=== PATIENT | female | born 1960 | race Caucasian/White ===

== ENCOUNTER 2021-03-06 08:56 | Emergency (ER) | payer OTHER, SELFPAY ==
--- NOTE | 2021-03-06 | ECG_ITS ---
Test Reason : HEART PALP Blood Pressure : / mmHG Vent. Rate : 078 BPM Atrial Rate : 078 BPM P-R Int : 172 ms QRS Dur : 074 ms QT Int : 372 ms P-R-T Axes : 051 028 052 degrees QTc Int : 424 ms Normal sinus rhythm Normal ECG When compared with ECG of 10-JUL-2015 15:03, Premature atrial complexes are no longer Present Referred By: Generic ED Physician Electronically Signed By:Benja Carter
--- NOTE | ~2021-03-06 | CT_ITS ---
EXAMINATION: CT ANGIOGRAM NECK WITH CONTRAST CT ANGIOGRAM BRAIN WITH CONTRAST CLINICAL INFORMATION: Dizziness. Dysarthria. COMPARISON: Brain MRI July 10, 2005. TECHNIQUE: Test bolus sequences followed by intravenous administration 100 mL of Omnipaque 350. Helical imaging was performed in the axial plane from the thoracic inlet to the skull vertex. Delayed postcontrast imaging of the head was also performed. The data was processed at the cytotechnologist workstation for generation of MIP sequences. Angled MIPs and volume rendered reformatted images were also generated at an offline 3D workstation. Stenoses are assessed in accordance with NASCET criteria unless otherwise indicated. This CT examination was performed using dose optimization techniques as appropriate, variously including the following: *Automated exposure control *Adjustment of mA and/or kV according to patient size (this includes techniques or standardized protocols for targeted exams where dose is matched to indication/reason for exam; i.e. extremities or head) *Use of iterative reconstruction technique DLP: 2501 mGy-cm FINDINGS: Head CT: There is no intracranial hemorrhage, extra-axial collection, mass effect, or CT evidence of territorial infarction. The ventricles are normal in size and configuration without evidence of hydrocephalus. The extracranial structures are unremarkable. No abnormal enhancement is seen. The dural venous sinuses demonstrate normal opacification. Neck CTA: The aortic arch and great vessel origins are patent. The common and internal carotid arteries are patent. No stenosis is seen at the bifurcations. Both vertebral arteries are patent with the right side being mildly dominant. Head CTA: The intradural vertebral arteries are patent. The left vertebral artery terminates as a PICA. The right vertebral artery supplies the basilar artery. The basilar artery is patent. There is disposition of the bilateral posterior cerebral arteries. Both chainstitch binder are patent. The bilateral ICAs are patent. The anterior cerebral arteries are patent. Both MCAs are patent with symmetric collaterals. No discrete aneurysm is seen. Non-vascular findings: The cervical soft tissues are within normal limits. There is no consolidation within the upper lungs. Mild degenerative changes are seen within the spine. There is no significant narrowing of the spinal canal. CT/CT angio head neck stroke IMPRESSION: CT head: No intracranial hemorrhage or large acute infarction. CTA neck: No hemodynamically significant stenosis in the major arteries of the neck. CTA head: No large vessel occlusion or significant stenosis within the intracranial circulation. This critical result was discussed with Deb Lew on 03/06/2021 11:00 AM, and it was ascertained that the content and urgency of the report was understood at the time of direct communication.
[2021-03-06 09:09] VITALS: BP 127/74; PULSE 79; RESP 16; TEMP 35.8; O2SAT 96; BMI 20.7
--- NOTE | 2021-03-06 09:56 | ED_ITS ---
HPI - Syncope General Chief Complaint: Dizziness Stated Complaint: extreme dizziness Time Seen by Provider: 03/06/21 09:44 Source: patient Mode of arrival: ambulatory Limitations: no limitations History of Present Illness HPI narrative: 60 y/o female with history of osteoporosis and headaches presents to the ER with an episode of dizziness and feeling out of her body while driving to work earlier this morning. She reports waking up feeling at her baseline today. She went for an hour hike and drank plenty of water. On her way to work at 8am she was on the phone with her friend when she suddenly felt a ahmadi in her head and felt very lightheaded and dizzy. She pulled over and ate a protein bar. She felt well enough to continue driving to work but did not feel back to her baseline. When she got to work 30 minutes later she still felt unwell so she was brought to the ER for further evaluation. In the waiting room she had another headrush. She denies any focal weakness, numbness, tingling, facial droop, difficulty speaking. She reports a history of severe headaches in the past; was seen here a few years ago for this associated with difficulty speaking - had stroke protocol done, got migraine cocktail with severe adverse reaction per her report. complaint: felt faint and almost passed out Onset (ago): hour(s) (2) Duration of episode: 40 Prodromal symptoms: vision changes, lightheaded and heart racing Witnessed: No Context: at rest Injuries sustained associated with event: none Current symptoms: lightheaded Treatments prior to arrival: none Related Data Home Medications Medication Instructions Recorded Confirmed fluorouracil 5 % topical cream appl TOPICAL BID 10/18/20 ibuprofen 600 mg tablet 600 mg PO TID PRN 10/18/20 olopatadine 0.2 % eye drops 1 drp OPHTHALMIC (EYE) BID 10/18/20 olopatadine 0.7 % eye drops 1 drp OPHTHALMIC (EYE) DAILY 10/18/20 valacyclovir 1 gram tablet 1,000 mg PO BID 10/18/20 Previous Rx's Medication Instructions Recorded alendronate 70 mg tablet 70 mg PO QWEEK #12 tab 01/26/21 Allergies Allergy/AdvReac Type Severity Reaction Status Date / Time codeine [CODEINE] Allergy Severe MAKES ME Verified 10/18/20 16:00 CRAZY diphenhydramine Allergy Severe Palpitation Verified 10/18/20 16:00 [From Benadryl] s,Anxiety Sulfa (Sulfonamide Allergy Severe UNKNWON, Verified 10/18/20 16:00 Antibiotics) hives [SULFA (SULFONAMIDE ANTIBIOTICS)] sulfamethoxazole Allergy Unknown Unknown Verified 10/18/20 16:00 [From Septra] trimethoprim [From Septra] Allergy Unknown Unknown Verified 10/18/20 16:00 Review of Systems Review of Systems: Constitutional: No Fever, No Chills ENT/Mouth: No sore throat, No Rhinorrhea, No Swallowing Difficulty Eyes: No Eye Pain, No Swelling, No Redness Cardiovascular: No Chest Pain, No SOB, No Orthopnea, No Edema Respiratory: No Cough, No Sputum, No Wheezing, No dyspnea Gastrointestinal: No Nausea, No Vomiting, No Diarrhea, No abdominal Pain Genitourinary: No Dysuria, No Urinary Frequency, No Hematuria Musculoskeletal: No joint pain, No Myalgias Skin: No Skin Lesions, No rash Neuro: No Weakness, No Numbness, + Dizziness, No Headache Psych: + Anxiety/Panic, No Depression Heme/Lymph: No Bruising, No Lymphadenopathy Endocrine: No Polyuria, No Polydipsia PMFSH Past Medical History Attestation statement: The following information was validated with the patient. Surgical History History of appendectomy History of section History of nasal surgery Family History Family History Father Lung cancer Smoker Mother Hypotension Blood disorder Sister Breast cancer Son Autism Social History Social History Alcohol intake: never Patient Tobacco Use Status: Never used Tobacco Use of substances other than those prescribed or required for medical reasons: No Advance Directives: Yes Advance Directives Information Provided: Yes Advance Directives on File: No Physical Exam Vital Signs: Vital Signs: Last Vital Signs Temp 96.4 F L 03/06/21 09:09 Pulse 77 03/06/21 12:23 Resp 16 03/06/21 12:08 BP 115/61 03/06/21 12:23 Pulse Ox 97 03/06/21 12:08 Body Mass Index 20.7 Appearance: Alert. Oriented X3. No acute distress. Eyes: Pupils equal, round and reactive to light. EOMI, no nystagmus ENT: Pharynx normal. Neck: Normal inspection. Neck supple. CVS: Normal heart rate and rhythm. Pulses normal. Respiratory: No respiratory distress. Breath sounds normal. Abdomen: Soft and nontender. +BS x4 Skin: Skin warm and dry. Normal skin color. Normal skin turgor. No rashes. Extremities: No lower extremity edema. Neuro: Oriented X 3. No motor deficit. No sensory deficit. Normal speech. Normal finger to nose and heel to bello bilaterally. NIH Stroke Scale Internal: Initial- Upon Arrival Level of Consciousness: Alert Level of Consciousness Questions: Answers both questions correctly Level of Consciousness Commands: Performs both tasks correctly Best Gaze: Normal Visual: No visual loss Facial Palsy: Normal Motor Arm (Right): No drift Motor Arm (Left): No drift Motor Leg (Right): No drift Motor Leg (Left): No drift Limb Ataxia: Absent Sensory: Normal Best Language: No aphasia Dysarthia: Normal Extinction and Inattention: No abnormality Score: 0 Course Course Course Narrative: 60 y/o female presenting with acute onset of dizziness and feeling unwell that started at 8am this morning. Slightly better after eating. Question hypoglycemia episode although she reports not feeling back to her baseline as of yet. Her neuro exam is completely benign and nonfocal. NIH 0. Not a tPA candidate at this time given her symptoms are non-disabling Will get metabolic workup, EKG and monitor closely. Reevaluation(s) Reevaluation #1: 10:10 - patient's friend at the bedside witnessed an acute mental status change with confusion that was very brief - did not remember her birthday and could not recite the alphabet. Now back to baseline. Dr. Colon aware - recommending STAT stroke protocol with CTA head/neck and giving dose of IV toradol and IV droperidol for possible atypical migraine. She is anxious and suspect some anxiety is playing a role. Effie COLIN affiliate marketing coordinator made aware. Reevaluation #2: Case was reviewed by Dr. Victoria - recommends outpatient follow up with Neurology and her PCP. She needs an outpatient EEG - she reportedly has a remote seizure history in her 20s and took herself off of depakote when she got with no return of seizures. Doubt acute seizure at this time. Ambulated to the bathroom with a steady gait. Remains nonfocal. Reevaluation #3: Orthostatic VS are normal. Feels improved after meds. No recurrence of confusion. She would like to go home. We discussed the possibility of admission for observation and she feels so much better she would like to go home. She agrees to f.u with Neuro and her PCP. Case and dispo d/w Dr. Colon who agrees with plan. Consultations Consultation #1: Neurology MDM - Syncope Differential Diagnosis Differential diagnosis: Likely syncope due to orthostatic hypotension, vasovagal syncope, complete atrioventricular block, subarachnoid hemorrhage and dehydratio n Medical Records Attestation: I reviewed the patient's medical records. Lab Data Attestation: I reviewed the patient's lab results. Result diagrams: 03/06/21 10:24 03/06/21 10:24 Labs: Lab Results 03/06/21 03/06/21 03/06/21 Range/Units 10:24 10:24 10:24 WBC 4.4 L (4.8-10.8) X10*3/uL RBC 4.19 L (4.20-5.50) X10*6/uL Hgb 12.7 (12.0-16.0) g/dl Hct 37.0 (37-47) % MCV 88.3 (80-98) fL MCH 30.3 (27.0-33.0) pg MCHC 34.3 (31.0-35.0) g/dl RDW 11.8 (11.0-16.0) % Plt Count 221 (160-400) X10*3/uL MPV 9.3 L (9.4-12.3) fL Immature Gran % (Auto) 0.2 (0.0-0.4) % Neut % (Auto) 50.3 (45-73) % Lymph % (Auto) 34.9 (20-40) % Creek % (Auto) 10.6 (2-11) % Eos % (Auto) 2.9 (0-4) % Baso % (Auto) 1.1 (0-2) % Lymph # (Auto) 1.6 (1.2-4.9) X10*3/uL [place] # (Auto) 0.5 (0.1-1.2) X10*3/uL Eos # (Auto) 0.1 (0.0-0.4) X10*3/uL Baso # (Auto) 0.1 (0.0-0.2) X10*3/uL Abs Immat Gran (auto) 0.01 (0.00-0.03) X10*3/uL Absolute Neuts (auto) 2.2 (2.0-8.3) X10*3/uL Absolute Nucleated RBC 0.000 (0.0-0.012) X10*3/uL Nucleated RBC % (auto) 0.0 (0.0-0.2) /100WBC PT (9.9-13.0) SEC INR (0.9-1.1) APTT (24.1-38.0) SEC Sodium 141 (135-145) mmol/L Potassium 3.9 (3.3-5.1) mmol/L Chloride 106 (96-108) mmol/L Carbon Dioxide 24 (22-29) mmol/L Anion Gap 15 (12-20) BUN 15 (9-16) mg/dL Creatinine 0.72 (0.5-1.4) mg/dL Estim Creat Clear Calc 85.3 Estimated GFR > 60 Random Glucose 91 (60-115) mg/dL Calcium 10.0 (8.4-10.2) mg/dL Magnesium 1.8 (1.6-2.6) mg/dL Total Bilirubin 0.6 (0.0-1.0) mg/dL Direct Bilirubin 0.2 (0.0-0.5) mg/dL AST 27 (5-31) U/L ALT 37 H (0-31) U/L Alkaline Phosphatase 45 (39-117) U/L Troponin I High Sens < 3.5 (<3.5-17.0) ng/L B-Natriuretic Peptide 88 (<100) pg/mL Total Protein 7.2 (6.5-8.0) g/dL Albumin 4.5 (3.5-5.0) g/dL Urine Color Urine Appearance Urine pH (5.0-8.0) Ur Specific [place] (1.005-1.025) Urine Protein (NEG-TRACE) MG/DL Urine Glucose (UA) (NEG) MG/DL Urine Ketones (NEG) MG/DL Urine Blood (NEG) Urine Nitrite (NEG) Ur Leukocyte Esterase (NEG) Urine Opiates Screen (Not Detect) Ur Barbiturates Screen (Not Detect) Ur Phencyclidine Scrn (Not Detect) Ur Amphetamines Screen (Not Detect) U Benzodiazepines Scrn (Not Detect) Urine Cocaine Screen (Not Detect) U Marijuana (THC) Screen (Not Detect) 03/06/21 03/06/21 03/06/21 Range/Units 10:24 10:24 11:28 WBC (4.8-10.8) X10*3/uL RBC (4.20-5.50) X10*6/uL Hgb (12.0-16.0) g/dl Hct (37-47) % MCV (80-98) fL MCH (27.0-33.0) pg MCHC (31.0-35.0) g/dl RDW (11.0-16.0) % Plt Count (160-400) X10*3/uL MPV (9.4-12.3) fL Immature Gran % (Auto) (0.0-0.4) % Neut % (Auto) (45-73) % Lymph % (Auto) (20-40) % Creek % (Auto) (2-11) % Eos % (Auto) (0-4) % Baso % (Auto) (0-2) % Lymph # (Auto) (1.2-4.9) X10*3/uL [place] # (Auto) (0.1-1.2) X10*3/uL Eos # (Auto) (0.0-0.4) X10*3/uL Baso # (Auto) (0.0-0.2) X10*3/uL Abs Immat Gran (auto) (0.00-0.03) X10*3/uL Absolute Neuts (auto) (2.0-8.3) X10*3/uL Absolute Nucleated RBC (0.0-0.012) X10*3/uL Nucleated RBC % (auto) (0.0-0.2) /100WBC PT 12.0 (9.9-13.0) SEC INR 1.1 (0.9-1.1) APTT 34.6 (24.1-38.0) SEC Sodium (135-145) mmol/L Potassium (3.3-5.1) mmol/L Chloride (96-108) mmol/L Carbon Dioxide (22-29) mmol/L Anion Gap (12-20) BUN (9-16) mg/dL Creatinine (0.5-1.4) mg/dL Estim Creat Clear Calc Estimated GFR Random Glucose (60-115) mg/dL Calcium (8.4-10.2) mg/dL Magnesium (1.6-2.6) mg/dL Total Bilirubin (0.0-1.0) mg/dL Direct Bilirubin (0.0-0.5) mg/dL AST (5-31) U/L ALT (0-31) U/L Alkaline Phosphatase (39-117) U/L Troponin I High Sens (<3.5-17.0) ng/L B-Natriuretic Peptide (<100) pg/mL Total Protein (6.5-8.0) g/dL Albumin (3.5-5.0) g/dL Urine Color YELLOW Urine Appearance CLEAR Urine pH 7.0 (5.0-8.0) Ur Specific [place] 1.010 (1.005-1.025) Urine Protein NEG (NEG-TRACE) MG/DL Urine Glucose (UA) NEG (NEG) MG/DL Urine Ketones NEG (NEG) MG/DL Urine Blood NEG (NEG) Urine Nitrite NEG (NEG) Ur Leukocyte Esterase NEG (NEG) Urine Opiates Screen Not Detected (Not Detect) Ur Barbiturates Screen Not Detected (Not Detect) Ur Phencyclidine Scrn Not Detected (Not Detect) Ur Amphetamines Screen Not Detected (Not Detect) U Benzodiazepines Scrn Not Detected (Not Detect) Urine Cocaine Screen Not Detected (Not Detect) U Marijuana (THC) Screen Not Detected (Not Detect) ECG Data Attestation: I personally reviewed and interpreted this ECG as follows: ECG interpretation date: 03/06/21 ECG interpretation time: 10:20 Interpretation: normal sinus rhythm, HR 78 bpm, normal LA interval, normal QTc, no ST segment elevations or depressions. Critical Care Time Critical Care Time Critical Care Time: Yes Total Critical Care Time: 48 Attestation: I have personally provided critical care time exclusive of time spent on separately billable procedures. Time includes review of lab data, radiology results, discussion with consultants, and monitoring for potential decompensation. Intervention performed as documented. Discharge Plan Discharge Clinical Impression: Pre-syncope Patient Disposition: Home, Self-Care Instructions: Near Syncope (ED) Additional Instructions: Your lab workup today was normal. Your CT scan was normal. Cause of your symptoms are not completeyl clear - recommend close outpatient follow up with your doctor as well as Neurology. Recommend outpatient EEG to assess for possible seizure activity. Rest. No strenuous activity. Do not drive today. Stay hydrated and drink plenty of fluids. If you develop new or worsening symptoms call 911 or come back to the ER for further evaluation. Prescriptions: No Action alendronate 70 mg tablet 70 mg PO QWEEK Qty: 12 RF: 0 valacyclovir 1 gram tablet 1,000 mg PO BID RF: 0 ibuprofen 600 mg tablet 600 mg PO TID PRNRF: 0 [place] 0.7 % drops 1 drp ophthalmic (eye) DAILY RF: 0 olopatadine 0.2 % drops 1 drp ophthalmic (eye) BID RF: 0 fluorouracil 5 % cream topical BID RF: 0 Referrals: Marielle Teresa MD [Physician] - 2 days (presyncope w/ confusion, remote hx seizures) Mayra Prather NP [Primary Care Provider] - 2 days Stand Alone Forms: Work/School Release
--- NOTE | 2021-03-06 10:06 | PC.NURSE ---
friend at bedside reports pt very confused with unclear speech. Evaluated pt at bedside, asked her to recite alphabet, pt had letters scrambled and stopped mid alphabet, could not remember the order of letters but then finished, leaving off the last 6 letters.Physical neuro exam: pupils equal and reactive. Face symmetrical. Tongue midline. [employer] equal and strong. She has no limb drift or ataxia. MD aware of mental status change. awaiting orders.
[2021-03-06 10:32] LABS: MANUAL DIFF FLAG NO
[2021-03-06 10:33] LABS: Basophils Absolute Auto 0.1 X10*3/uL (0.0-0.2); Basophils Percent Auto 1.1 % (0-2); Eosinophils Absolute Auto 0.1 X10*3/uL (0.0-0.4); Eosinophils Percent Auto 2.9 % (0-4); Hemoglobin 12.7 g/dl (12.0-16.0); Imm Gran Abs Auto 0.01 X10*3/uL (0.00-0.03); Imm Gran Pct Auto 0.2 % (0.0-0.4); Lymphocytes Absolute Auto 1.6 X10*3/uL (1.2-4.9); Lymphocytes Percent Auto 34.9 % (20-40); Mean Corpuscular HGB Conc 34.3 g/dl (31.0-35.0); Mean Corpuscular Hemoglobin 30.3 pg (27.0-33.0); Mean Corpuscular Volume 88.3 fL (80-98); Mean Platelet Volume 9.3 fL (9.4-12.3); Monocytes Absolute Auto 0.5 X10*3/uL (0.1-1.2); Monocytes Percent Auto 10.6 % (2-11); Neutrophils Absolute Auto 2.2 X10*3/uL (2.0-8.3); Neutrophils Percent Auto 50.3 % (45-73); Platelet Count 221 X10*3/uL (160-400); Red Blood Count 4.19 X10*6/uL (4.20-5.50); Red Cell Distribution Width 11.8 % (11.0-16.0); White Blood Count 4.4 X10*3/uL (4.8-10.8)
[2021-03-06 10:47] LABS: INTERNATIONAL NORM RATIO 1.1 (0.9-1.1)
[2021-03-06 10:50] LABS: Partial Thromboplastin Time 34.6 SEC (24.1-38.0)
[2021-03-06] MEDS: iohexoL 350 MG/ML 100 ML INFUS..BTL IV (10:57)
[2021-03-06 11:02] LABS: Alanine Aminotransferase 37 U/L (0-31); Albumin Level 4.5 g/dL (3.5-5.0); Alkaline Phosphatase 45 U/L (39-117); Anion Gap 15 (12-20); Aspartate Amino Transferase 27 U/L (5-31); Bilirubin Direct 0.2 mg/dL (0.0-0.5); Bilirubin Total 0.6 mg/dL (0.0-1.0); Blood Urea Nitrogen 15 mg/dL (9-16); Carbon Dioxide 24 mmol/L (22-29); Chloride 106 mmol/L (96-108); Creatinine Clr Calc Pharmacy 85.3; Estimated Glomerular Filt Rate > 60; Glucose Random 91 mg/dL (60-115); Magnesium 1.8 mg/dL (1.6-2.6); Potassium 3.9 mmol/L (3.3-5.1); Sodium 141 mmol/L (135-145); Total Protein 7.2 g/dL (6.5-8.0)
[2021-03-06 11:08] LABS: B Type Natriuretic Peptide 88 pg/mL (<100); Troponin-I High Sensitivity < 3.5 ng/L (<3.5-17.0)
[2021-03-06] MEDS: Ketorolac Tromethamine 30 MG/ML VIAL IVPUSH (11:23)
[2021-03-06 11:36] LABS: Glucose Urine UA NEG (NEG); Leukocyte Esterase Urine NEG (NEG); Nitrite Urine NEG (NEG); Urine Blood NEG (NEG); Urine Ketones NEG (NEG); Urine Protein NEG (NEG-TRACE)
[2021-03-06 11:47] LABS: Appearance Urine CLEAR; Color Urine YELLOW
[2021-03-06 12:04] LABS: Amphetamine Screen Urine Not Detected (Not Detect); Barbiturates, Urine Not Detected (Not Detect); Benzodiazepines Screen Urine Not Detected (Not Detect); Cannabinoid Screen Urine Not Detected (Not Detect); Cocaine Screen Urine Not Detected (Not Detect); Opiate Screen Urine Not Detected (Not Detect); Phencyclidine Screen Urine Not Detected (Not Detect)
[2021-03-06 12:08] VITALS: BP 124/79; PULSE 76; RESP 16; O2SAT 97
--- NOTE | 2021-03-06 12:09 | PC.NURSE ---
pt states she feels better, states she feels more alert and oriented. Pts speech is clear, she is moving all extremities well.
--- NOTE | 2021-03-06 12:16 | MHC.STROKE ---
1019 I WAS NOTIFIED BY LOIS JOSEPH THAT SHE WAS ACTIVATING THE STROKE PROTOCOL ON THIS PATIENT FOR. HEAD POON DIZZINESS THAT STARTED AT 0800 AND LASTED 40 MINUTES. I MET WITH THE PATIENT AND HER SYMPTOMS WERE GONE AT THIS TIME. SHE EXPLAINED THAT THIS HAPPENED IN 2014. I REVIEWED THE PRIOR RECORD AND SHE WAS WORKED UP FOR KEMP/MIGRAINE. SHE HAS A HISTORY OF SEIZURES WHEN SHE LIVED IN [place] 35 YEARS AGO AND WAS ON DILANTIN AND DEPAKOTE, BUT STOPPED TAKING THOSE MEDICATIONS WHEN SHE GO 22 YEARS AGO. SHE HAS NOT HAD ANY ISSUES EXCEPT FOR IN 06/2015. SHE DID SEE DR CARDONA AN OUTPATIENT AT THAT TIME AND HAS NOT BEEN BACK TO HIM. I DID REVIEW HER PRESENTATION, SCANS AND VITALS WITH DR JAMES AND FROM A NEURO-PERSPECTIVE SHE SHOULD HAVE AN OUTPATIENT EEG AND F/U WITH DR. CARDONA. I DID RELAY THIS INFORMATION TO THE PATIENT. SHE IS IN AGREEMENT. I ALSO MENTIONED THAT IF THESE SYMPTOMS RETURN SHOULD NEED TO SEEK EMERGENCY CARE AND COME BACK TO THE HOSPITAL.
[2021-03-06 12:20] VITALS: BP 100/65; PULSE 59
[2021-03-06 12:21] VITALS: BP 105/66; PULSE 67
[2021-03-06 12:23] VITALS: BP 115/61; PULSE 77
[2021-03-06 13:58] LABS: Glucose, Whole Blood 78 mg/dL (60-115)
== END 2021-03-06 13:07 | disposition home or self-care (01) ==
PROVIDERS: Physician Assistant; Emergency Provider Student in an Organized Health Care Education/Training Program; PCP Hospitalist
DX: R55 Syncope and collapse (principal)
CPT/HCPCS: 36415; 70496; 70498; 80048; 80076; 80307; 81003; 82947; 83735; 83880; 84484; 85025; 85610; 85730; 93005; 96374; 96375; 99285; 99291; J1790; J1885; Q9967

== ENCOUNTER 2021-03-19 09:29 | Outpatient (REF) | payer OTHER, SELFPAY | END 2021-03-19 09:30 | disposition home or self-care (01) | LOC: HO.LAB 09:29 | PROVIDERS: PCP Hospitalist; Visit Provider Internal Medicine | DX: Z20.822 Contact with and (suspected) exposure to COVID-19 (principal) | CPT/HCPCS: C9803; U0003; U0005 ==

== ENCOUNTER 2021-03-22 07:15 | Outpatient (REF) | payer OTHER, SELFPAY ==
[2021-03-22 08:03] LABS: Glucose Urine UA NEG (NEG); Leukocyte Esterase Urine NEG (NEG); Nitrite Urine NEG (NEG); Urine Blood NEG (NEG); Urine Ketones NEG (NEG); Urine Protein NEG (NEG-TRACE)
[2021-03-22 08:06] LABS: Appearance Urine CLEAR; Color Urine YELLOW
[2021-03-22 08:21] LABS: Alanine Aminotransferase 14 U/L (0-31); Albumin Level 4.3 g/dL (3.5-5.0); Alkaline Phosphatase 44 U/L (39-117); Anion Gap 10 (12-20); Aspartate Amino Transferase 18 U/L (5-31); Bilirubin Total 0.6 mg/dL (0.0-1.0); Blood Urea Nitrogen 14 mg/dL (9-16); Calcium 9.8 mg/dL (8.4-10.2); Carbon Dioxide 30 mmol/L (22-29); Chloride 105 mmol/L (96-108); Estimated Glomerular Filt Rate > 60; Glucose Fasting 95 mg/dL (60-99); Sodium 141 mmol/L (135-145); Total Protein 6.9 g/dL (6.5-8.0)
[2021-03-22 08:27] LABS: HIV AB/AG Nonreactive (Nonreactive); HIV Num 1 0.05 S/CO (0.00-0.99)
[2021-03-22 08:29] LABS: TSH reflex Free T4 2.55 uIU/mL (0.32-4.0); Vitamin D 25-OH Total 82.4 ng/mL (>30)
[2021-03-22 08:49] LABS: Erythrocyte Sedimentation Rate 7 MM/HR (0-20)
[2021-03-22 09:04] LABS: Folate 15.9 ng/mL (> or = 4.0); Vitamin B12 647 pg/mL (200-900)
[2021-03-22 11:52] LABS: Monotest Negative (Negative)
[2021-03-23 03:52] LABS: Syphilis Screen Nonreactive (Nonreactive)
[2021-03-24 05:06] LABS: Lyme Abs Screen <0.90 index
[2021-03-24 13:35] LABS: CRP High Sensitivity 0.5 mg/L
== END 2021-03-22 07:16 | disposition home or self-care (01) ==
LOC: HO.LAB 07:15
PROVIDERS: PCP Hospitalist; Visit Provider Family Medicine
DX: Z00.00 Encounter for general adult medical examination without abnormal findings (principal); Z11.4 Encounter for screening for human immunodeficiency virus [HIV]; R51.9 Headache, unspecified; E53.8 Deficiency of other specified B group vitamins; E55.9 Vitamin D deficiency, unspecified
CPT/HCPCS: 36415; 80053; 81003; 82306; 82607; 82746; 84443; 85652; 86141; 86308; 86617; 86618; 86780; 87389

== ENCOUNTER 2021-03-28 12:10 | Outpatient (REF) | payer OTHER, SELFPAY ==
--- NOTE | ~2021-03-28 | XR_ITS ---
EXAMINATION: XR CHEST CLINICAL INFORMATION: R42 - Dizziness and giddiness COMPARISON: Chest radiographs 05/05/2017, 11/04/2016 TECHNIQUE: 2 frontal views and a lateral projection the chest are obtained for a total of 3 views. FINDINGS: There is good inspiration versus mild hyperinflation. The lungs are clear. There is no airspace consolidation or groundglass opacity. No pneumothorax or pleural reaction or effusion. The costophrenic sulci are clear. The heart is normal in size. The hilar and mediastinal contours and visualized bony structures are unremarkable. XR/XR chest 2V IMPRESSION: Good inspiration versus mild hyperinflation. Lungs clear.
== END 2021-03-28 12:11 | disposition home or self-care (01) ==
LOC: HO.HMGCX 12:10
PROVIDERS: PCP Hospitalist; Visit Provider Nurse Practitioner Family
DX: Z13.89 Encounter for screening for other disorder (principal)
CPT/HCPCS: 71046

== ENCOUNTER 2021-03-29 14:18 | Outpatient (REF) | payer OTHER, SELFPAY ==
[2021-03-29 15:08] LABS: CDiff Gene PCR NEGATIVE (Negative)
== END 2021-03-29 14:19 | disposition home or self-care (01) ==
LOC: HO.LNP 14:18
PROVIDERS: Visit Provider Nurse Practitioner Family
DX: R19.7 Diarrhea, unspecified (principal)
CPT/HCPCS: 87045; 87046; 87329; 87338; 87493

== ENCOUNTER → 2021-04-16 12:49 | Outpatient (REF) | payer OTHER, SELFPAY ==
--- NOTE | 2021-04-16 12:57 | ECG_ITS ---
Hook-up date: 2021-04-16 13:03:00 Duration: 43:29:00 Test Indications: DIZZINESS Medications: [id number] QRS complexes 429 Ventricular ectopics which represent <1 % of total QRS comp. 3 Supraventricular ectopics which represent <1 % of total QRS comp. * Paced QRS complexs which represent % of total QRS comp. VENTRICULAR ECTOPY 427 Isolated 10 Bigeminal Cycles 1 Couplets 0 Runs 0 Beats in Runs * Beats LONGEST at * BPM at :: -- * Beats FASTEST at * BPM at :: -- SUPRAVENTRICULAR ECTOPY 3 Isolated 0 Couplets 0 Runs 0 Beats in Runs * Beats LONGEST at * BPM at :: -- * Beats FASTEST at * BPM at :: -- HEART RATES 50 MIN at 01:01:48 2021-04-17 81 AVG 182 MAX at 06:30:59 2021-04-17 LONGEST RR 1.5280 secs at 01:06:55 2021-04-17 S-T LEVELS Channel 1 - 128 mm at 13:03:00 2021-04-16 - 128 mm at 13:03:00 2021-04-16 Channel 2 - 128 mm at 13:03:00 2021-04-16 - 128 mm at 13:03:00 2021-04-16 Channel 3 - 128 mm at 03:22:21 -- - 128 mm at 03:22:21 Referred By: Saturnino Delatorre Overread By:
== END ==
LOC: HO.CARD 12:49
PROVIDERS: PCP Hospitalist; Visit Provider Family Medicine
DX: R42 Dizziness and giddiness (principal)
CPT/HCPCS: 93225; 93226

== ENCOUNTER 2021-05-29 12:47 | Outpatient (REF) | payer OTHER, SELFPAY ==
--- NOTE | 2021-05-29 12:53 | EEG_ITS ---
The waking background activity consists of a well-defined moderate voltage posterior alpha frequency of 9 to 10 hertz, intermixed with low voltage fast frequencies anteriorly. Drowsiness is characterized with diffuse theta slowing. During stages of sleep, symmetrical sleep spindles, vertex sharp transients, and K complexes developed over both hemispheres. Stage 4 sleep is characterized by diffuse moderate to high voltage delta sleep. Arousals are frequent and unremarkable. Few instances of high amplitude theta noted in the waking state. The patient remains asymptomatic. IMPRESSION: This 24-hour ambulatory EEG is considered within normal limits. MD TYRONE Duncan/BECCA / [id number]
== END 2021-05-29 12:48 | disposition home or self-care (01) ==
LOC: HO.NEURO 12:47
PROVIDERS: PCP Hospitalist; Visit Provider Psychiatry & Neurology Neurology
DX: G40.909 Epilepsy, unspecified, not intractable, without status epilepticus (principal)
CPT/HCPCS: 95708

== ENCOUNTER 2021-06-13 15:01 | Outpatient (REF) | payer OTHER, SELFPAY ==
--- NOTE | ~2021-06-13 | XR_ITS ---
EXAMINATION: XR RIBS, RIGHT CLINICAL INFORMATION: Pleurodynia COMPARISON: Previous chest x-ray most recent March 2021 TECHNIQUE: 3 views of the right ribs and one view of the chest were obtained. FINDINGS: Lungs are clear. No consolidation, pneumothorax, or pleural effusion. The cardiomediastinal silhouette and pulmonary vasculature are normal. Osseous structures are unremarkable. Ribs are intact. No fractures are identified. XR/XR ribs RT min 3V w CXR1V IMPRESSION: Unremarkable examination.
--- NOTE | ~2021-06-13 | XR_ITS ---
EXAMINATION: XR ABDOMEN KUB CLINICAL INDICATION: Abdominal pain COMPARISON: None TECHNIQUE: AP view of the abdomen. FINDINGS: There are no dilated loops of bowel to suggest obstruction. There is stool throughout the colon questionable for mild constipation. There is no evidence of free air. No calcifications are seen. Bony structures are unremarkable. XR/XR KUB IMPRESSION: Question mild constipation otherwise unremarkable exam.
== END 2021-06-13 15:02 | disposition home or self-care (01) ==
LOC: HO.XRAY 15:01
PROVIDERS: PCP Hospitalist; Visit Provider Hospitalist
DX: R07.81 Pleurodynia (principal); R10.9 Unspecified abdominal pain
CPT/HCPCS: 71101; 74018

== ENCOUNTER 2021-10-24 08:42 | Outpatient (REF) | payer OTHER, SELFPAY ==
[2021-10-24 10:32] LABS: Hematocrit 38.7 % (37.0-47.0); Hemoglobin 13.1 g/dl (12.0-16.0); Mean Corpuscular HGB Conc 33.9 g/dl (31.0-35.0); Mean Corpuscular Hemoglobin 29.6 pg (27.0-33.0); Mean Corpuscular Volume 87.4 fL (80.0-98.0); Mean Platelet Volume 9.6 fL (9.4-12.3); Platelet Count 264 X10*3/uL (160-400); Red Blood Count 4.43 X10*6/uL (4.20-5.50); White Blood Count 4.3 X10*3/uL (4.8-10.8)
[2021-10-24 11:10] LABS: Vitamin B12 582 pg/mL (200-900)
[2021-10-24 11:12] LABS: TSH reflex Free T4 1.65 uIU/mL (0.32-4.0)
[2021-10-24 11:22] LABS: Alanine Aminotransferase 13 U/L (0-31); Albumin Level 4.4 g/dL (3.5-5.0); Alkaline Phosphatase 59 U/L (39-117); Anion Gap 10 (12-20); Aspartate Amino Transferase 20 U/L (5-31); Bilirubin Total 0.4 mg/dL (0.0-1.0); Blood Urea Nitrogen 11 mg/dL (9-16); Calcium 9.9 mg/dL (8.4-10.2); Carbon Dioxide 29 mmol/L (22-29); Chloride 106 mmol/L (96-108); Cholesterol 198 mg/dL; Estimated Glomerular Filt Rate > 60; Glucose Random 97 mg/dL (60-115); HDL Cholesterol 76 mg/dL; LDL Cholesterol Calculated 110 mg/dl; Magnesium 1.8 mg/dL (1.6-2.6); Phosphorus 2.4 mg/dL (2.7-4.5); Sodium 141 mmol/L (135-145); Triglycerides 61 mg/dL
== END 2021-10-24 08:43 | disposition home or self-care (01) ==
LOC: HO.WFDLDS 08:42
PROVIDERS: Visit Provider Hospitalist
DX: Z00.00 Encounter for general adult medical examination without abnormal findings (principal); K44.9 Diaphragmatic hernia without obstruction or gangrene
CPT/HCPCS: 36415; 80053; 80061; 82607; 83735; 84100; 84443; 85027

== ENCOUNTER 2022-06-03 13:13 | Outpatient (REF) | payer OTHER, SELFPAY ==
[2022-06-03 13:32] LABS: Appearance Urine Clear; Color Urine Yellow; Glucose Urine UA Negative (Negative); Leukocyte Esterase Urine Large (3+) (Negative); Nitrite Urine Negative (Negative); PH 7.5 (5.0-9.0); UMIC TRIGGER UA YES; Urine Blood Negative (Negative); Urine Ketones Trace mg/dL (Negative); Urine Protein Negative (Neg-Trace)
[2022-06-03 13:37] LABS: Bacteria Urine 3+ (None Seen); RBC Urine 0-2 /HPF (0-2); Squamous Epithelial Cell Urine 0-2 /HPF (0-2); WBC Urine >50 /HPF (0-5)
[2022-06-03 13:50] LABS: Magnesium 1.9 mg/dL (1.6-2.6); Phosphorus 2.7 mg/dL (2.7-4.5)
== END 2022-06-03 13:14 | disposition home or self-care (01) ==
LOC: HO.LAB 13:13
PROVIDERS: PCP Hospitalist; Visit Provider Hospitalist
DX: R74.8 Abnormal levels of other serum enzymes (principal); R19.7 Diarrhea, unspecified; R30.0 Dysuria
CPT/HCPCS: 36415; 81001; 83735; 84100

== ENCOUNTER 2024-01-20 07:02 | Outpatient (REF) | payer OTHER, SELFPAY ==
[2024-01-20 08:06] LABS: Baso%MD 1.1 %; Eos%MD 4.3 %; Hematocrit 38.6 % (37.0-47.0); IG%MD 0.3 %; Lymph%MD 44.8 %; Mean Corpuscular HGB Conc 33.7 g/dl (31.0-35.0); Mean Corpuscular Hemoglobin 30.1 pg (27.0-33.0); Mean Corpuscular Volume 89.4 fL (80.0-98.0); Mean Platelet Volume 9.3 fL (9.4-12.3); Mono%MD 9.8 %; Neut%MD 39.7 %; Platelet Count 266 X10*3/uL (160-400); Red Blood Count 4.32 X10*6/uL (4.20-5.50); Red Cell Distribution Width 11.9 % (11.0-16.0); White Blood Count 3.7 X10*3/uL (4.8-10.8)
[2024-01-20 08:43] LABS: Alanine Aminotransferase 20 U/L (0-31); Albumin Level 4.4 g/dL (3.5-5.0); Alkaline Phosphatase 62 U/L (39-117); Anion Gap 14 (12-20); Aspartate Amino Transferase 20 U/L (5-31); Bilirubin Total 0.5 mg/dL (0.0-1.0); Blood Urea Nitrogen 19 mg/dL (9-16); Calcium 9.8 mg/dL (8.4-10.2); Carbon Dioxide 23 mmol/L (22-29); Chloride 106 mmol/L (96-108); Cholesterol 168 mg/dL (<200); Estimated Glomerular Filt Rate > 60; Glucose Random 75 mg/dL (60-115); HDL Cholesterol 85 mg/dL (>40); LDL Cholesterol Calculated 75 mg/dL (<100); Potassium 3.9 mmol/L (3.3-5.1); Sodium 139 mmol/L (135-145); Total Protein 7.2 g/dL (6.5-8.0); Triglycerides 43 mg/dL (<150)
[2024-01-20 08:47] LABS: Atypical Lymphs Percent Manual 1 % (0-6); Band Neutrophils Percent 1 % (3-5); Basophils Percent Manual 1 % (0-2); Eosinophils Absolute Manual 0.1 X10*3/uL (0.0-0.4); Eosinophils Percent Manual 2 % (0-4); Lymphocytes Absolute Manual 1.7 X10*3/uL (1.2-4.9); Lymphocytes Percent Manual 47 % (20-40); Monocytes Absolute Manual 0.3 X10*3/uL (0.1-1.2); Monocytes Percent Manual 7 % (2-11); Neutrophils Absolute Manual 1.6 X10*3/uL (2.0-8.3); Neutrophils Percent Manual 41 % (45-73)
[2024-01-20 08:48] LABS: Platelet Estimate NORMAL (NORMAL); Platelet Morphology Comment NORMAL; RBC Morphology NORMAL
== END 2024-01-20 07:03 | disposition home or self-care (01) ==
LOC: HO.LAB 07:02
PROVIDERS: PCP Internal Medicine; Visit Provider Internal Medicine
DX: Z13.220 Encounter for screening for lipoid disorders (principal); R42 Dizziness and giddiness; R74.8 Abnormal levels of other serum enzymes; R79.89 Other specified abnormal findings of blood chemistry
CPT/HCPCS: 36415; 80053; 80061; 85007; 85027

== ENCOUNTER 2024-01-27 08:20 | Outpatient (AMB) | payer OTHER, SELFPAY ==
--- NOTE | 2024-01-27 08:17 | A.OFFPC_ITS ---
Vital Signs 01/27/24 08:28 Height 5 ft 7.17 in Weight 157 lb 8 oz BMI 24.5 BP 108/62 Blood Pressure Location Lt brachial Position Sitting Respiration 12 Pulse 69 Pulse Source Pulse Oximeter Temp 97.9 F Temp Source Oral Pulse Oximetry (%) 99 Oxygen Delivery Method Room Air Intake Visit Reasons: CPE PETER SV Intake Note: New patient visit Allergies codeine [CODEINE] Allergy (Severe, Verified 01/27/24 08:25) MAKES ME CRAZY diphenhydramine [From Benadryl] Allergy (Severe, Verified 01/27/24 08:25) Palpitations,Anxiety Sulfa (Sulfonamide Antibiotics) [SULFA (SULFONAMIDE ANTIBIOTICS)] Allergy (Severe, Verified 01/27/24 08:25) UNKNWON, hives sulfamethoxazole [From Septra] Allergy (Unknown, Verified 01/27/24 08:25) Unknown trimethoprim [From Septra] Allergy (Unknown, Verified 01/27/24 08:25) Unknown Tobacco use date assessed: 01/27/24 Dental Screening Dental Screen Date: 01/27/24 Did you have a dental visit in the last 12 months?: Yes Did you have a dental problem in the last 6 months where you did not have access to dental care?: No Was dental information given to patient?: Patient has dentist HPI HPI Comments History of Present Illness Details 63 year old female with past medical his tory of osteoporosis, GERD, presenting to establish care/physical exam Starting back on fosamax. Follows with Dr Keenan. History of gastritis, GERD, some food sensitivities. Doing intermittent fasting at times. Feeling better. Survey Research Teacher: Erika Alexandre Mammo 05/2023 Colonoscopy 08/2023-5 year DXA 08/2023 Td 2010 [facility] Surgical History History of appendectomy History of section History of nasal surgery Family History Father Lung cancer Smoker Mother Hypotension Blood disorder Sister Breast cancer Son Autism Other Substance abuse Social History (Updated 01/27/24 @ 09:52 by Melany Craig CMA) Housing: House Alcohol intake: current Alcohol intake frequency: holidays/special occasions o nly Patient Tobacco Use Status: Never used Tobacco e-Cigarette/Vaping Use: Never Used Second Hand Smoke Exposure: No Use of substances other than those prescribed or required for medical reasons: No service: No Current occupational status: 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 1. Little interest or pleasure in doing things: not at all 2. Feeling down, depressed, or hopeless: not at all 3. Trouble falling or staying asleep, or sleeping too much: several days 4. Feeling tired or having little energy: several days 5. Poor appetite or overeating: several days 6. Feeling bad about yourself - or that you are a failure or have let yourself or your family down: not at all 7. Trouble concentrating on things, such as reading the newspaper or watching television: not at all 8. Moving or speaking so slowly that other people could have noticed. Or the opposite - being so fidgety or restless that you have been moving around a lot more than usual: not at all 9. Thoughts that you would be better off or of hurting yourself in some way: not at all Total score: 3 Depression Screening Interpretation: Positive Depression Screening Follow-up: Existing condition Depression Screening Done: Yes 06110 - PHQ-9 Billing: Yes Source: Developed by Drs. Rodrigo Keenan, Tish Bess, Carlos Rivera and colleagues, with an educational marta from [employer]. Thrive Questionnaire Date Thrive assessed: 01/27/24 I am a: Patient What is your living situation today?: I have a steady place to live Within the past 12 months, did the food you bought not last and you didn't have the money to get more?: Never true Within the past 12 months, did you worry whether your food would run out before you got money to buy more?: Never true Do you have trouble paying for medicines?: No Do you have trouble getting transportation to medical appointments?: No Do you have trouble paying your heating and electricity bill?: No Do you have trouble taking care of your child, family member or friend?: No Do you have trouble with day-to-day activities such as bathing, preparing meals, shopping, managing finances, etc.?: No Are you currently unemployed and looking for a job?: No Are you interested in more education?: No Please select the resources that you would like help with: None Currently or been in a relationship where the following occur: no concerns reported THRIVE Score: 0 AUDIT C Alcohol Use Questionnaire (AUDIT-C) 1. How often do you have a drink containing alcohol?: 2-3 times a week 2. How many drinks containing alcohol do you have on a typical day when you are drinking?: 3 or 4 3. How often do you have six or more drinks on one occasion?: Never Total Score: 4 DEEPTI-7 AMB Questionnaire DEEPTI-7 Date DEEPTI - 7 assessed: 01/27/24 Feeling nervous, anxious, or on edge: 1 = Several days Not being able to stop or control worryin = Several days Worrying too much about different things: 1 = Several days Trouble relaxin = Nearly every day Being so restless that it is hard to sit still: 2 = More than half the days Becoming easily annoyed or irritable: 1 = Several days Feeling afraid as if something awful might happen: 0 = Not at all Total DEEPTI-7 score (0-4 normal; 5-9 mild; 10-14 moderate; 15-21 severe): 9 Source: Developed by Drs. Rodrigo Keenan, Tish Bess, Carlos Rivera and colleagues, with an educational marta from [employer]. DEEPTI-7 Assessment Billing DEEPTI-7 Assessment Tool: DEEPTI-7 Assessment 59502 Review of Systems Const Details: ROS CONSTITUTIONAL: Denies weight loss, fever and chills. HEENT: Denies changes in vision and hearing. RESPIRATORY: Denies SOB and cough. CV: Denies palpitations and CP GI: Denies abdominal pain, nausea, vomiting and diarrhea. : Denies dysuria and urinary frequency. MSK: Denies new myalgia and joint pain. SKIN: Denies rash and pruritus. NEUROLOGICAL: Denies headache PSYCHIATRIC: Denies recent changes in mood. Physical exam (Primary Care) Vital Signs: Last Vital Signs Temp 97.9 F 01/27/24 08:28 Pulse 69 01/27/24 08:28 Resp 12 01/27/24 08:28 BP 108/62 01/27/24 08:28 Pulse Ox 99 01/27/24 08:28 Oxygen Delivery Method Room Air 01/27/24 08:28 PHYSICAL EXAM: GENERAL: Alert and oriented x 3. NAD EYES: EOMI. Anicteric. HENT: Moist mucous membranes. No scleral icterus. No cervical lymphadenopathy. LUNGS: Clear to auscultation bilaterally. CARDIOVASCULAR: Regular rate and rhythm. No murmur. No JVD. ABDOMEN: Soft, non-tender +bs EXTREMITIES: No edema. Non-tender. SKIN: No rashes or lesions. Warm. NEUROLOGIC: No focal neurological deficits. CN II-XII grossly intact PSYCHIATRIC: Cooperative. Appropriate mood and affect BMI result Body Mass Index 24.5 Tobacco/Smoking Status: Tobacco use Status Tobacco use date assessed 01/27/24 01/27/24 08:31 Patient Tobacco Use Status Never used Tobacco 01/27/24 08:19 e-Cigarette/Vaping Use Never Used 01/27/24 08:19 PHQ-9: PHQ-9 Score PHQ-9: Total score 3 01/27/24 11:00 Depression Screening Interpretation: Positive Depression Screening Follow-up: Existing condition Thrive Assessment: Date of Thrive Assessment Date Thrive assessed 01/27/24 01/27/24 11:00 Currently or been in a relationship where the following occur: no concerns reported Immunizations Boostrix Tdap 2.5 Lf unit-8 mcg-5 Lf/0.5 mL intramuscular syringe Performing Provider: Brittany Elaine MD Performing Location: [facility] Medicine Administered by: Melany Craig CMA on 01/27/24 12:24 Dose Route Admin Location Dispensed Lot Number Expiration Date [facility] Mold Breaker 0.5 mL IM Right Deltoid 0.5 mL [id number] 02/24/26 [id number] [employer] VIS Given Date VIS Provided VIS Publication Date 01/27/24 Single Vaccine 21 Eligibility Eligibility Date Funding Source Not [facility] Eligible 01/27/24 Private Assessment and Plan Assessment & Plan (1) Well adult exam: Code(s): Z00.00 - Encounter for general adult medical examination without abnormal findings Plan: The patient was seen today for preventive annual exam. As part of this exam we assessed/discussed age appropriate preventive measures. (2) Vertigo: Comment: stable Code(s): R42 - Dizziness and giddiness (3) Headache: Comment: Ibuprofen prn Code(s): R51.9 - Headache, unspecified Qualifiers: Headache chronicity pattern: episodic headache Headache type: unspecified Intractability: not intractable Qualified Code(s): R51.9 - Headache, unspecified (4) Osteoporosis: Code(s): M81.0 - Age-related osteoporosis without current pathological fracture Qualifiers: Osteoporosis type: age-related Presence of current pathological fracture: without current pathological fracture Qualified Code(s): M81.0 - Age- related osteoporosis without current pathological fracture Orders: Orders TDaP Immunization 01/27/24 Z23 - Encounter for immunization Medications: New omeprazole 20 mg PO DAILY 90 days 90 caps 3RF Refilled ibuprofen 600 mg PO TID 1 month PRN 90 tabs 1RF fever or pain Coding Level of Care Code New Pt Prev Care 40-64y(39601) Diagnoses Well adult exam Z00.00 Vertigo R42 Nonintractable episodic headache, unspecified headache type R51.9 Headache chronicity pattern: episodic headache Headache type: unspecified Intractability: not intractable Age-related osteoporosis without current pathological fracture M81.0 Osteoporosis type: age-related Presence of current pathological fracture: without current pathological fracture Additional Codes DEEPTI-7 Assessment Billing - DEEPTI-7 Assessment Tool: DEEPTI-7 Assessment 16603 ([id number])
[2024-01-27 08:28] VITALS: BP 108/62; PULSE 69; RESP 12; TEMP 36.6; O2SAT 99; BMI 24.5
== END 2024-01-27 09:18 | disposition home or self-care (01) ==
PROVIDERS: PCP Hospitalist; Visit Provider Internal Medicine
DX: Z23 Encounter for immunization (principal)
CPT/HCPCS: 90471; 90715; 99396

== ENCOUNTER 2024-09-20 09:25 | Outpatient (AMB) | payer OTHER, SELFPAY ==
--- NOTE | 2024-09-20 09:28 | A.OFFPC_ITS ---
Vital Signs 09/20/24 09:49 Height 5 ft 7.17 in Weight 172 lb 2 oz BMI 26.8 BP 108/68 Blood Pressure Location Rt brachial Position Sitting Pulse 81 Pulse Source Pulse Oximeter Pulse Oximetry (%) 98 Oxygen Delivery Method Room Air Intake Visit Reasons: Chest Pain Intake Note: Chest pain, hear burn, tightness in chest, sob with exertion. Started last Friday. Allergies codeine [CODEINE] Allergy (Severe, Verified 09/20/24 09:32) MAKES ME CRAZY diphenhydramine [From Benadryl] Allergy (Severe, Verified 09/20/24 09:32) Palpitations,Anxiety Sulfa (Sulfonamide Antibiotics) [SULFA (SULFONAMIDE ANTIBIOTICS)] Allergy (Severe, Verified 09/20/24 09:32) UNKNWON, hives sulfamethoxazole [From Septra] Allergy (Unknown, Verified 09/20/24 09:32) Unknown trimethoprim [From Aprra] Allergy (Unknown, Verified 09/20/24 09:32) Unknown Tobacco use date assessed: 01/27/24 Dental Screening Dental Screen Date: 01/27/24 HPI HPI Comments History of Present Illness Details 64 year old female with past medical his tory of osteoporosis, GERD, presenting for chest pain Chest pain- Two weekends ago patient was in [place] and had severe chest tightness and pain, an elevated heart rate (triggering her Apple Watch alert) and shortness of breath. She went to ER where tests revealed no heart attack or pneumonia. Has had recurrent episodes of chest tightness and pain. Worse with exercise. Also notes increased in dyspepsia, heartburn. Osteoporosis. Intolerant fosamax (GI). Had reclast about 6 weeks ago. Coincides with increased heartburn, chest pain. Follows with Dr Keenan. Was advised against taking PPI she was previously on so she would be aware if symptoms developed. History of gastritis, GERD, some food sensitivities. EGD with h/o gastritis, erosioins in 2020. Parking Officer: Erika Alexandre Mammo Fall 2023 Colonoscopy 08/2023-5 year DXA 08/2023 Td 2010 [facility] Surgical History History of nasal surgery History of section History of appendectomy Family History Father Lung cancer Smoker Mother Hypotension Blood disorder Sister Breast cancer Son Autism Other Substance abuse Social History (Updated 09/20/24 @ 09:35 [address] Melany Craig 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 1. Little interest or pleasure in doing things: not at all 2. Feeling down, depressed, or hopeless: not at all 3. Trouble falling or staying asleep, or sleeping too much: several days 4. Feeling tired or having little energy: several days 5. Poor appetite or overeating: several days 6. Feeling bad about yourself - or that you are a failure or have let yourself or your family down: not at all 7. Trouble concentrating on things, such as reading the newspaper or watching television: not at all 8. Moving or speaking so slowly that other people could have noticed. Or the opposite - being so fidgety or restless that you have been moving around a lot more than usual: not at all 9. Thoughts that you would be better off or of hurting yourself in some way: not at all Total score: 3 Depression Screening Interpretation: Positive Depression Screening Done: Yes 08976 - PHQ-9 Billing: Yes Source: Developed by Drs. Rodrigo Keenan, Tish Bess, Carlos Rivera and colleagues, with an educational marta from [employer]. Thrive Questionnaire Date Thrive assessed: 09/17/24 I am a: Patient What is your living situation today?: I have a steady place to live Within the past 12 months, did the food you bought not last and you didn't have the money to get more?: Never true Within the past 12 months, did you worry whether your food would run out before you got money to buy more?: Never true Do you have trouble paying for medicines?: No Do you have trouble getting transportation to medical appointments?: No Do you have trouble paying your heating and electricity bill?: No Do you have trouble taking care of your child, family member or friend?: No Do you have trouble with day-to-day activities such as bathing, preparing meals, shopping, managing finances, etc.?: No Are you currently unemployed and looking for a job?: No Are you interested in more education?: No Please select the resources that you would like help with: None Currently or been in a relationship where the following occur: No concerns reported THRIVE Score: 0 AUDIT C Alcohol Use Questionnaire (AUDIT-C) 1. How often do you have a drink containing alcohol?: Never 2. How many drinks containing alcohol do you have on a typical day when you are drinking?: 1 or 2 3. How often do you have six or more drinks on one occasion?: Never Total Score: 0 DEEPTI-7 AMB Questionnaire DEEPTI-7 Date DEEPTI - 7 assessed: 09/20/24 Feeling nervous, anxious, or on edge: 1 = Several days Not being able to stop or control worryin = Not at all Worrying too much about different things: 0 = Not at all Trouble relaxin = Several days Being so restless that it is hard to sit still: 1 = Several days Becoming easily annoyed or irritable: 1 = Several days Feeling afraid as if something awful might happen: 0 = Not at all Total DEEPTI-7 score (0-4 normal; 5-9 mild; 10-14 moderate; 15-21 severe): 4 Source: Developed by Drs. Rodrigo Keenan, Tish Bess, Carlos Rivera and colleagues, with an educational marta from [employer]. DEEPTI-7 Assessment Billing DEEPTI-7 Assessment Tool: DEEPTI-7 Assessment 98805 Physical exam (Primary Care) Vital Signs: Last Vital Signs Pulse 81 09/20/24 09:49 BP 108/68 09/20/24 09:49 Pulse Ox 98 09/20/24 09:49 Oxygen Delivery Method Room Air 09/20/24 09:49 BMI result Body Mass Index 26.8 Tobacco/Smoking Status: Tobacco use Status Tobacco use date assessed 01/27/24 09/20/24 09:29 Patient Tobacco Use Status Never used Tobacco 09/20/24 09:35 e-Cigarette/Vaping Use Never Used 09/20/24 09:35 PHQ-9: PHQ-9 Score PHQ-9: Total score 3 09/20/24 09:47 Depression Screening Interpretation: Positive Thrive Assessment: Date of Thrive Assessment Date Thrive assessed 09/17/24 09/20/24 09:29 Currently or been in a relationship where the following occur: No concerns reported Coding Level of Care Code Est Pt Level 5 (40375) Complex EM visit Add On G2211 Diagnoses Chest pain, unspecified type R07.9 Chest pain type: unspecified Additional Codes DEEPTI-7 Assessment Billing - DEEPTI-7 Assessment Tool: DEEPTI-7 Assessment 33894 ([id number]) PHQ-9 - 29650 - PHQ-9 Billing: Yes ([id number]) Time Spent (min) 43 Assessment & Plan Assessment & Plan (1) Chest pain: Code(s): R07.9 - Chest pain, unspecified Category: Medical Qualifiers: Chest pain type: unspecified Qualified Code(s): R07.9 - Chest pain, unspecified Plan: Most likely GI/PUD etc. Will refer to GI for upper endoscopy. Did recommend at least 2 week PPI therapy. Takes motrin often. Discussed reclast, NSAID likely contributors to symptoms. EKG performed -normal. Will send for stress test She has gained weight. Check TSH. Zepbound if covered though did discussed could increased heartburn but weight loss may help Orders: Orders Celiac Disease Panel Today R10.13 - Epigastric pain, R19.7 - Diarrhea, unspecified CA stress test Today R10.13 - Epigastric pain TSH reflex Free T4 Today M81.0 - Age-related osteoporosis without current pathological fracture, R10.13 - Epigastric pain Cortisol Random Today R07.9 - Chest pain, unspecified, R10.13 - Epigastric pain UA CC w/rflx Micro + Cult Today R10.9 - Unspecified abdominal pain Complete Blood Count Auto Diff Today D72.820 - Lymphocytosis (symptomatic) Pathologist Review - CBC Today D72.820 - Lymphocytosis (symptomatic) Referrals Gastroenterology Referral K29.70 - Gastritis, unspecified, without bleeding, R07.9 - Chest pain, unspecified, R10.13 - Epigastric pain Medications: New Zepbound (tirzepatide (weight loss)) for 4 weeks 2.5 mg (0.5 mL) subcut QWEEK 2 mL 1RF NS E66.9 - Obesity, unspecified, R07.9 - Chest pain, unspecified Zepbound (tirzepatide (weight loss)) for 4 weeks 2.5 mg (0.5 mL) subcut QWEEK 2 mL 0RF NS E66.9 - Obesity, unspecified, R07.9 - Chest pain, unspecified Refilled ibuprofen 600 mg PO TID PRN 90 tabs 1RF fever or pain 1 month
[2024-09-20 09:49] VITALS: BP 108/68; PULSE 81; O2SAT 98; BMI 26.8
== END 2024-09-20 10:26 | disposition home or self-care (01) ==
PROVIDERS: PCP Internal Medicine; Visit Provider Internal Medicine
DX: R07.9 Chest pain, unspecified (principal)

== ENCOUNTER 2024-09-20 10:17 | Outpatient (REF) | payer OTHER, SELFPAY ==
[2024-09-20 12:24] LABS: Cortisol Random 6.3 ug/dL; TSH reflex Free T4 1.81 uIU/mL (0.32-4.0)
[2024-09-20 14:21] LABS: Appearance Urine Clear; Color Urine Yellow; Glucose Urine UA Negative (Negative); Leukocyte Esterase Urine Negative (Negative); Nitrite Urine Negative (Negative); Specific Gravity - Urine <= 1.005 (1.005-1.025); Urine Blood Negative (Negative); Urine Ketones Negative (Negative); Urine Protein Negative (Neg-Trace)
[2024-09-21 22:18] LABS: Immunoglobulin A 194 mg/dL (70-320); Transglutaminase IgA <1.0 U/mL
== END 2024-09-20 10:18 | disposition home or self-care (01) ==
LOC: HO.WFDLDS 10:17
PROVIDERS: Visit Provider Internal Medicine
DX: R07.9 Chest pain, unspecified (principal); R10.13 Epigastric pain; R19.7 Diarrhea, unspecified; M81.0 Age-related osteoporosis without current pathological fracture; R10.9 Unspecified abdominal pain; K29.70 Gastritis, unspecified, without bleeding
CPT/HCPCS: 36415; 81003; 82533; 82784; 84443; 86364; 96127

== ENCOUNTER → 2024-10-05 07:44 | Outpatient (REF) | payer OTHER, SELFPAY | LOC: HO.CARD 07:44 | PROVIDERS: PCP Internal Medicine; Visit Provider Internal Medicine | DX: R07.9 Chest pain, unspecified (principal) | CPT/HCPCS: 93017 ==

== ENCOUNTER → 2024-10-05 07:48 | Outpatient (BNV) | payer OTHER, SELFPAY | PROVIDERS: PCP Internal Medicine | DX: R06.00 Dyspnea, unspecified (principal); R00.2 Palpitations | CPT/HCPCS: 93016; 93018 ==

== ENCOUNTER 2024-10-22 14:50 | Outpatient (AMB) | payer OTHER, SELFPAY ==
--- NOTE | 2024-10-22 14:59 | A.OFFPC_ITS ---
Intake Visit Reasons: follow up GLP-phone Allergies codeine [CODEINE] Allergy (Severe, Verified 09/20/24 09:32) MAKES ME CRAZY diphenhydramine [From Benadryl] Allergy (Severe, Verified 09/20/24 09:32) Palpitations,Anxiety Sulfa (Sulfonamide Antibiotics) [SULFA (SULFONAMIDE ANTIBIOTICS)] Allergy (Severe, Verified 09/20/24 09:32) UNKNWON, hives sulfamethoxazole [From Septra] Allergy (Unknown, Verified 09/20/24 09:32) Unknown trimethoprim [From Septra] Allergy (Unknown, Verified 09/20/24 09:32) Unknown Tobacco use date assessed: 01/27/24 Dental Screening Dental Screen Date: 01/27/24 HPI HPI Comments History of Present Illness Details 64 year old female with past medical his tory of osteoporosis, GERD, o besity presenting for follow up She is doing great on zepbound. Has lost 12 pounds. She will continue for an additional month Chest pain-No interval episodes. Stress test pending. Two weekends ago patient was in [place] and had severe chest tightness and pain, an elevated heart rate (triggering her Apple Watch alert) and shortness of breath. She went to ER where tests revealed no heart attack or pneumonia. Has had recurrent episodes of chest tightness and pain. Worse with exercise. Also notes increased in dyspepsia, heartburn. Osteoporosis. Intolerant fosamax (GI). Had reclast about 6 weeks ago. Started omeprazole with great improvement in symptoms. Her reclast coincided with increased heartburn, chest pain. Follows with Dr Keenan. History of gastritis, GERD, some food sensitivities. EGD with h/o gastritis, erosioins in 2020. 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: Erika Alexandre Mammo Fall 2023 Colonoscopy 08/2023-5 year DXA 08/2023 Td 2010 ROS see HPI PHYSICAL EXAM: Telehealth [facility] Surgical History History of nasal surgery History of section History of appendectomy Family History Father Lung cancer Smoker Mother Hypotension Blood disorder Sister Breast cancer Son Autism Other Substance abuse Social History (Updated 09/20/24 @ 09:35 by Melany Craig CMA) Housing: House Alcohol intake: former Patient Tobacco Use Status: Never used Tobacco e-Cigarette/Vaping Use: Never Used Second Hand Smoke Exposure: No service: No 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 occupational status: 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 Cognitive needs: No Hearing needs: No Vision needs: Yes Questionnaire Thrive Questionnaire Date Thrive assessed: 09/17/24 I am a: Patient What is your living situation today?: I have a steady place to live Within the past 12 months, did the food you bought not last and you didn't have the money to get more?: Never true Within the past 12 months, did you worry whether your food would run out before you got money to buy more?: Never true Do you have trouble paying for medicines?: No Do you have trouble getting transportation to medical appointments?: No Do you have trouble paying your heating and electricity bill?: No Do you have trouble taking care of your child, family member or friend?: No Do you have trouble with day-to-day activities such as bathing, preparing meals, shopping, managing finances, etc.?: No Are you currently unemployed and looking for a job?: No Are you interested in more education?: No Please select the resources that you would like help with: None Currently or been in a relationship where the following occur: No concerns reported THRIVE Score: 0 DEEPTI-7 AMB Questionnaire DEEPTI-7 Date DEEPTI - 7 assessed: 09/20/24 Source: Developed by Drs. Rodrigo Keenan, Tish Bess, Carlos Rivera and colleagues, with an educational marta from [employer]. Physical exam (Primary Care) Tobacco/Smoking Status: Tobacco use Status Tobacco use date assessed 01/27/24 10/22/24 15:00 Patient Tobacco Use Status Never used Tobacco 10/22/24 15:00 e-Cigarette/Vaping Use Never Used 10/22/24 15:00 Thrive Assessment: Date of Thrive Assessment Date Thrive assessed 09/17/24 10/22/24 15:00 Currently or been in a relationship where the following occur: No concerns reported Telehealth Telehealth Telehealth [facility] Location of provider rendering services: practice address Location of patient: address on file Patient Identification confirmed using: Name, : Yes Telehealth method: voice only Patient verbally consented to treatment: Yes Patient verbally consented to billing insurance company: Yes Patient informed of any privacy concerns related to visit: Yes Minutes spent on Phone/Video with Pt.: 22 Coding Level of Care Code Est Pt Level 3 (47007) Diagnoses Obesity due to excess calories, unspecified class, unspecified whether serious comorbidity present E66.09 Obesity classification: unspecified obesity classification Obesity type: due to excess calories Serious obesity comorbidity presence: unspecified whether serious comorbidity present Chest pain, unspecified type R07.9 Chest pain type: unspecified Assessment & Plan Assessment & Plan (1) Obesity: Code(s): E66.9 - Obesity, unspecified Category: Medical Qualifiers: Obesity classification: unspecified obesity classification Obesity type: due to excess calories Serious obesity comorbidity presence: unspecified whether serious comorbidity present Qualified Code(s): E66.09 - Other obesity due to excess calories Plan: continue zepbound (2) Chest pain: Code(s): R07.9 - Chest pain, unspecified Category: Medical Qualifiers: Chest pain type: unspecified Qualified Code(s): R07.9 - Chest pain, unspecified Plan: Improving symptoms on PPI Stress test pending Medications: New omeprazole 20 mg PO DAILY 90 caps 3RF
== END 2024-10-22 15:12 | disposition home or self-care (01) ==
LOC: HO.HMCFM 14:50
PROVIDERS: PCP Internal Medicine; Visit Provider Internal Medicine
DX: R07.9 Chest pain, unspecified (principal); E66.09 Other obesity due to excess calories

== ENCOUNTER 2025-02-02 15:23 | Outpatient (AMB) | payer OTHER, SELFPAY ==
--- NOTE | 2025-02-02 15:32 | MHC.PC.OV ---
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: Yes Did you have a dental problem in the last 6 months where you did not have access to dental care?: No Was dental information given to patient?: Patient has dentist HPI CPE HPI Details Patient is a 64-year-old female who presents today for a physical exam. She normally follows with Dr. Elaine. Recently started on Zepbound and has been micro dosing this. She states that she lost the 20 lb very easily with this. She has been able to keep it off despite not using Zepbound for the last 6 weeks. She overall eats healthy and exercises. She was treated for GERD with the omeprazole and states that that was very helpful. She rarely has to take anything for acid reflux. Follows with [facility] derm twice a day your for skin checks. Title Abstractor: Up-to-date, Erika Alexandre Mammo: KILLIAND- at [facility] Bone density: Up-to-date following with [facility] for osteoporosis Colonoscopy: 09/17-due in 20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 Cognitive needs: No Hearing needs: No Vision needs: Yes Questionnaire Thrive Questionnaire Date Thrive assessed: 09/17/24 I am a: Patient What is your living situation today?: I have a steady place to live Within the past 12 months, did the food you bought not last and you didn't have the money to get more?: Never true Within the past 12 months, did you worry whether your food would run out before you got money to buy more?: Never true Do you have trouble paying for medicines?: No Do you have trouble getting transportation to medical appointments?: No Do you have trouble paying your heating and electricity bill?: No Do you have trouble taking care of your child, family member or friend?: No Do you have trouble with day-to-day activities such as bathing, preparing meals, shopping, managing finances, etc.?: No Are you currently unemployed and looking for a job?: No Are you interested in more education?: No Please select the resources that you would like help with: None Currently or been in a relationship where the following occur: No concerns reported THRIVE Score: 0 AUDIT C Alcohol Use Questionnaire (AUDIT-C) 1. How often do you have a drink containing alcohol?: Never 3. How often do you have six or more drinks on one occasion?: Never Total Score: 0 DEEPTI-7 AMB Questionnaire DEEPTI-7 Date DEEPTI - 7 assessed: 09/20/24 Source: Developed by Drs. Rodirgo Keenan, Tish Bess, Carlos Rivera and colleagues, with an educational marta from [employer]. Physical exam (Primary Care) Vital Signs: Last Vital Signs Temp 98.4 F 02/02/25 15:34 Pulse 72 02/02/25 15:34 Resp 12 02/02/25 15:34 BP 107/64 06/11/25 15:34 Pulse Ox 98 02/02/25 15:34 Oxygen Delivery Method Room Air 02/02/25 15:34 BMI result Body Mass Index 23.7 Tobacco/Smoking Status: Tobacco use Status Tobacco use date assessed 01/27/24 02/02/25 15:39 Patient Tobacco Use Status Never used Tobacco 02/02/25 15:39 e-Cigarette/Vaping Use Never Used 02/02/25 15:39 Thrive Assessment: Date of Thrive Assessment Date Thrive assessed 09/17/24 02/02/25 15:39 Currently or been in a relationship where the following occur: No concerns reported Const Orientation/consciousness: patient oriented x3 HENMT Ears: hearing grossly normal bilaterally and TM's normal bilaterally General nose exam: No nasal polyps present Face and sinus: Yes sinuses nontender Mouth: Normal oral and palatal mucosa present Eyes Pupils: Equal, round and reactive pupils present EOM: EOMs intact bilaterally Neck Neck: Yes full ROM and Yes no lymphadenopathy Thyroid: Thyroid normal Chest Chest palpation & inspection: normal inspection of the chest Resp Auscultation: clear to auscultation bilaterally Cardio Rate: regular rate Rhythm: regular rhythm Heart sounds: S1 normal heart sound present and S2 normal heart sound present Peripheral pulses: Peripheral pulses 2+ throughout GI Other: Soft, nontender Auscultation: normal bowel sounds Rectal Exam - Female: deferred General: Yes no CVA tenderness Back/Spine/Pelvis Other: Nontender Back: no CVA tenderness Skin General skin exam: no rashes or lesions noted Neuro General: patient oriented x3, gait normal, CN's II-XI intact bilaterally and deep tendon reflexes 2+ bilaterally Cranial nerves: Yes Equal, round and reactive pupils present Motor exam (neuro): 5/5 motor strength present throughout Sensory Exam: double simultaneous stimulation for sensation normal Coordination: [id number] test normal and Romberg test negative Extrem General: Yes normal to inspection and Yes full ROM Psych Affect: normal affect Attitude: cooperative Thought process: Normal thought process present Thought content: Normal thought content present Insight: Good insight present (Psych) Judgement: Good judgement present (Psych) Coding Level of Care Code Est Pt Prev Care 40-64y(28531) Diagnoses Encounter for routine history and physical examination Z00.00 Dyspepsia R10.13 Assessment & Plan Assessment & Plan (1) Encounter for routine history and physical examination: Code(s): Z00.00 - Encounter for general adult medical examination without abnormal findings Plan: Health maintenance reviewed Labs ordered today (2) Dyspepsia: Code(s): R10.13 - Epigastric pain Category: Medical Plan: Resolved with the omeprazole Orders: Orders Complete Blood Count Auto Diff Today R10.13 - Epigastric pain, Z00.00 - Encounter for general adult medical examination without abnormal findings UA CC w/rflx Micro + Cult Today R10.13 - Epigastric pain, Z00.00 - Encounter for general adult medical examination without abnormal findings, Z13.220 - Encounter for screening for lipoid disorders [facility] [place]. Panel Fast Today R10.13 - Epigastric pain, Z00.00 - Encounter for general adult medical examination without abnormal findings Lipid Panel Today R10.13 - Epigastric pain, Z00.00 - Encounter for general adult medical examination without abnormal findings TSH reflex Free T4 Today R10.13 - Epigastric pain, Z00.00 - Encounter for general adult medical examination without abnormal findings Microalbumin, Random (w Creat) Today R10.13 - Epigastric pain, Z00.00 - Encounter for general adult medical examination without abnormal findings
[2025-02-02 15:34] VITALS: BP 107/64; PULSE 72; RESP 12; TEMP 36.9; O2SAT 98; BMI 23.7
== END 2025-02-02 16:05 | disposition home or self-care (01) ==
LOC: HO.HMCFM 15:24
PROVIDERS: PCP Internal Medicine; Visit Provider Physician Assistant
DX: Z00.00 Encounter for general adult medical examination without abnormal findings (principal); R10.13 Epigastric pain

== ENCOUNTER → 2025-02-02 15:23 | Outpatient (BNVA) | payer OTHER, SELFPAY | PROVIDERS: PCP Internal Medicine; Visit Provider Physician Assistant ==

== ENCOUNTER 2025-02-03 08:49 | Outpatient (REF) | payer OTHER, SELFPAY ==
[2025-02-03 10:04] LABS: MANUAL DIFF FLAG NO
[2025-02-03 10:17] LABS: Basophils Absolute Auto 0.1 X10*3/uL (0.0-0.2); Basophils Percent Auto 1.3 % (0-2); Eosinophils Absolute Auto 0.1 X10*3/uL (0.0-0.4); Eosinophils Percent Auto 2.4 % (0-4); Hematocrit 37.5 % (37.0-47.0); Hemoglobin 12.9 g/dl (12.0-16.0); Imm Gran Abs Auto 0.02 X10*3/uL (0.00-0.03); Imm Gran Pct Auto 0.4 % (0.0-0.4); Lymphocytes Absolute Auto 1.9 X10*3/uL (1.2-4.9); Lymphocytes Percent Auto 42.6 % (20-40); Mean Corpuscular HGB Conc 34.4 g/dl (31.0-35.0); Mean Corpuscular Hemoglobin 30.4 pg (27.0-33.0); Mean Corpuscular Volume 88.2 fL (80.0-98.0); Mean Platelet Volume 8.9 fL (9.4-12.3); Monocytes Absolute Auto 0.4 X10*3/uL (0.1-1.2); Monocytes Percent Auto 8.9 % (2-11); Neutrophils Percent Auto 44.4 % (45-73); Platelet Count 242 X10*3/uL (160-400); Red Blood Count 4.25 X10*6/uL (4.20-5.50); Red Cell Distribution Width 12.1 % (11.0-16.0); White Blood Count 4.5 X10*3/uL (4.8-10.8)
[2025-02-03 10:23] LABS: Appearance Urine Clear; Color Urine Yellow; Glucose Urine UA Negative (Negative); Leukocyte Esterase Urine Negative (Negative); Nitrite Urine Negative (Negative); PH 6.5 (5.0-9.0); Specific Gravity - Urine 1.015 (1.005-1.025); Urine Blood Negative (Negative); Urine Ketones Negative (Negative); Urine Protein Negative (Neg-Trace)
[2025-02-03 10:49] LABS: Alanine Aminotransferase 20 U/L (0-31); Albumin Level 4.7 g/dL (3.5-5.0); Alkaline Phosphatase 40 U/L (39-117); Anion Gap 10 (12-20); Aspartate Amino Transferase 23 U/L (5-31); Bilirubin Total 0.6 mg/dL (0.0-1.0); Blood Urea Nitrogen 13 mg/dL (9-16); Calcium 9.8 mg/dL (8.4-10.2); Carbon Dioxide 28 mmol/L (22-29); Chloride 106 mmol/L (96-108); Cholesterol 202 mg/dL (<200); Estimated Glomerular Filt Rate > 60; Glucose Fasting 89 mg/dL (60-99); HDL Cholesterol 66 mg/dL (>40); LDL Cholesterol Calculated 126 mg/dL (<100); Potassium 5.3 mmol/L (3.3-5.1); Sodium 139 mmol/L (135-145); Total Protein 7.2 g/dL (6.5-8.0); Triglycerides 52 mg/dL (<150)
[2025-02-03 10:55] LABS: Creatinine Urine 69.15 mg/dL; Microalbumin Urine < 5.0 mg/L
== END 2025-02-03 08:50 | disposition home or self-care (01) ==
LOC: HO.LAB 08:49
PROVIDERS: Absent Provider Physician Assistant; PCP Internal Medicine; Visit Provider Nurse Practitioner
DX: Z00.00 Encounter for general adult medical examination without abnormal findings (principal); Z13.220 Encounter for screening for lipoid disorders; R10.13 Epigastric pain
CPT/HCPCS: 36415; 80053; 80061; 81003; 82570; 84443; 85025

== ENCOUNTER 2025-02-03 08:49 | Outpatient (AMB) | payer OTHER, SELFPAY ==
--- NOTE | 2025-02-03 08:54 | A.OFFVIS_ITS ---
Vital Signs 3 02/03/25 08:55 Height 5 ft 7 in Weight 152 lb BMI 23.8 BP 116/64 Blood Pressure Location Rt brachial Position Sitting Pulse 72 Pulse Source Pulse Oximeter Pulse Oximetry (%) 100 Oxygen Delivery Method Room Air Intake Visit Reasons: Epigastric , Chest pain & Gastritis Intake Note: New patient for eval of epigastric pain + gastritis. CC: C.O. GERD persistence, abd bloating + distention. Worse AM than PM. Pt confirms still taking PPI. Pt has had routine procedures with [facility] (EGD 2020, and [facility] 2024). Patient Services Clerk Required: No Accompanied by: Self / Same As Patient Allergies codeine [CODEINE] Allergy (Severe, Verified 02/03/25 08:54) MAKES ME CRAZY diphenhydramine [From Benadryl] Allergy (Severe, Verified 02/03/25 08:54) Palpitations,Anxiety Sulfa (Sulfonamide Antibiotics) [SULFA (SULFONAMIDE ANTIBIOTICS)] Allergy (Severe, Verified 02/03/25 08:54) UNKNWON, hives sulfamethoxazole [From Septra] Allergy (Unknown, Verified 02/03/25 08:54) Unknown trimethoprim [From Septra] Allergy (Unknown, Verified 02/03/25 08:54) Unknown HPI HPI Epigastric , Chest pain & Gastritis: Details: 64-year-old female here for initial evaluation of epigastric pain, chest pain and gastritis. She is referred by Brittany Elaine. PMX Obesity Epilepsy Vertigo Diarrhea Dizziness Headache Osteoporosis * SURGICAL HISTORY Most procedure on knows section Appendectomy * ALLERGIES Codeine Benadryl Sulfa * Quickflix LABS: None recent TODAY'S VISIT Her sx started around her divorce around 2020. Her mother and son both ahd gastric problems. Her sx are generally improving. She has found o2o helpful, but I'm getting conflicting counseling about the omeprazole. She is taking 20mg o2o 2-3 times a week. Her GERD is triggered by tomatoes as well as dyppepsia. She can not otherwise pinpoint trigger foods. Prior to the o2o she had HB with nausea and discomfort and upset stomach. She was also having post prandial loose stools with urgency. Her mother had a cholecystectomy. She feels full of gas and pressure in her abd first thing in the am. It is better if she releases gas. I review her records from [facility] and she had fair amount of the esophagitis on her 2020 EGD with some focal gastritis, negative for H pylori, her colonoscopy was a negative study with mild diverticulosis only. There is a CAT scan from the same time. Showing no abnormality with the gallbladder or liver. We discuss how the GI system needs to move gas out through the rectum or else it does tend to backup and carry stomach acid up with it. It is likely to her bowel irritability really made her reflux much worse given the fact that she eats well in his not overweight. Since this is still a bothersome symptom we discuss the differential diagnosis that could include gallbladder disease, SIBO, food allergies, or exocrine pancreatic insufficiency. I described the treatment and testing approaches to each. Since she does not have abdominal pain to speak of I kind of doubt that her gallbladder is part of the problem but we could always do an ultrasound and HIDA scan depending on her response and if she develops symptoms going forward. She would prefer to try treating SIBO. Will give her a course of Augmentin since she is allergic to sulfa drugs in likely would not tolerate Flagyl and we discussed various probiotics to use. I recommend something with both bifida and lactobacillus and I think [facility] is a good choice without being expensive. She had been by very expensive probiotics but found this onerous to her pocket book. If this does not work then we can do a trial of Creon. Reassured o2o at 20 mg is quite safe to use daily as long term care social worker cohort studies have not borne out the relationship between this and many diseases and it may be a coincident finding simply because people who have multiple comorbidities and up on stomach medications due to polypharmacy and contributing health problems that are detrimental to the GI system. She was counseled to maintain adequate mineral intake including calcium as sometimes lowering stomach acid can interfere with the absorption. Certainly, given the amount of esophagitis seen on her 2020 EGD the benefits of avoiding esophageal cancer and improvement in her quality of life far outweigh the potential risks of osteoporosis. ROV 6 weeks. [facility] Medical History (Updated 02/03/25 @ 09:53 by ZHAO Shah) Diarrhea Well adult exam Acute right flank pain Normal physical exam UTI (urinary tract infection) Surgical History History of nasal surgery History of section History of appendectomy Family History Father Lung cancer Smoker Mother Hypotension Blood disorder Sister Breast cancer Son Autism Other Substance abuse Social History Housing: House Alcohol intake: former Patient Tobacco Use Status: Never used Tobacco e-Cigarette/Vaping Use: Never Used Second Hand Smoke Exposure: No service: No Current occupational status: 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 Cognitive needs: No Hearing needs: No Vision needs: Yes Review of Systems Const Denies fatigue, Denies fever(s), Denies night sweats, Denies poor appetite and Denies weight loss Eyes Details: Glasses Reports requires corrective lenses ENT Reports Normal hearing present, Denies dental pain, Denies dysphagia, Denies hearing loss, Denies mouth pain, Denies odynophagia, Denies throat swelling, Denies tongue swelling and Reports other (Dentition adequate) Card Reports no additional complaints Resp Reports no additional complaints GI Details: Denies abdominal pain, Denies melena, Reports bloating, Denies hematochezia, Denies constipation, Denies GI cramping, Denies dysphagia, Denies excessive flatus, Denies early satiety, Reports dyspepsia, Reports heartburn, Denies diarrhea, Reports nausea, Denies odynophagia, Denies vomiting and Denies hematemesis Skin/Breast Denies pruritus, Denies lesions, Denies rash and Denies jaundice Neuro Reports Normal hearing present and Denies Abnormal speech present Endo Denies fatigue Aller/Immun Denies throat swelling and Denies tongue swelling Physical Exam Vital Signs: Last Vital Signs Pulse 72 02/03/25 08:55 BP 116/64 02/03/25 08:55 Pulse Ox 100 02/03/25 08:55 Oxygen Delivery Method Room Air 02/03/25 08:55 BMI result Body Mass Index 23.8 Const General: cooperative, no acute distress, well developed and well groomed Nutritional Appearance: average body habitus and well nourished Orientation/consciousness: oriented to person, oriented to place and oriented to time Limitations: No language barrier HEENT Head: Yes normocephalic and Yes atraumatic Eyes General: appearance normal, both eyes and all related structures Pupils: Equal, round and reactive pupils present Neck Neck: Yes normal visual inspection and Yes no lymphadenopathy Thyroid: Thyroid normal Resp Effort & Inspection: normal respiratory effort and able to speak in complete sentences Auscultation: clear to auscultation bilaterally Cardio Rate: regular rate Rhythm: regular rhythm Heart sounds: Normal, physiologic split S2 sound present Peripheral pulses: radial pulses present and posterior tibial pulses present GI Inspection: No distended and No Abdominal panniculus present Palpation (GI): Soft to palpation, nontender, no guarding, not rigid and No hepatosplenomegaly present Percussion: Yes normal to percussion Auscultation: normal bowel sounds Rectal Exam - Female: deferred Abdomen image: 2 1. Surgical scar Skin General skin exam: no rashes or lesions noted, turgor normal, skin not dry, no jaundice, No spider nevi and no striae Rashes: no rashes Nails: normal Neuro General: oriented to person, oriented to place and oriented to time Cranial nerves: Yes Equal, round and reactive pupils present and Yes Normal hearing present Speech: No Abnormal speech present Extrem General: Yes normal to inspection, No clubbing, No cyanosis and No edema Psych Appearance: grossly normal and well kempt Mental Status: mental status grossly normal Speech and movement: Normal speech and movement present Affect: normal affect Attitude: cooperative Thought process: Normal thought process present and not confabulating Thought content: Normal thought content present Insight: Fair insight present (Psych) Judgement: Fair judgement present (Psych) Assessment & Plan Assessment & Plan (1) GERD (gastroesophageal reflux disease): Comment: With significant esophagitis on her 2020 EGD from [facility] Code(s): K21.9 - Gastro-esophageal reflux disease without esophagitis Category: Medical (2) Dyspepsia: Code(s): R10.13 - Epigastric pain Category: Medical (3) Irritable bowel syndrome with diarrhea: Code(s): K58.0 - Irritable bowel syndrome with diarrhea Category: Medical Plan Her sx started around her divorce around 2020. Her mother and son both ahd gastric problems. Her sx are generally improving. She has found o2o helpful, but I'm getting conflicting counseling about the omeprazole. She is taking 20mg o2o 2-3 times a week. Her GERD is triggered by tomatoes as well as dyppepsia. She can not otherwise pinpoint trigger foods. Prior to the o2o she had HB with nausea and discomfort and upset stomach. She was also having post prandial loose stools with urgency. Her mother had a cholecystectomy. She feels full of gas and pressure in her abd first thing in the am. It is better if she releases gas. I review her records from [facility] [place] and she had fair amount of the esophagitis on her 2020 EGD with some focal gastritis, negative for H pylori, her colonoscopy was a negative study with mild diverticulosis only. There is a CAT scan from the same time. Showing no abnormality with the gallbladder or liver. We discuss how the GI system needs to move gas out through the rectum or else it does tend to backup and carry stomach acid up with it. It is likely to her bowel irritability really made her reflux much worse given the fact that she eats well in his not overweight. Since this is still a bothersome symptom we discuss the differential diagnosis that could include gallbladder disease, SIBO, food allergies, or exocrine pancreatic insufficiency. I described the treatment and testing approaches to each. Since she does not have abdominal pain to speak of I kind of doubt that her gallbladder is part of the problem but we could always do an ultrasound and HIDA scan depending on her response and if she develops symptoms going forward. She would prefer to try treating SIBO. Will give her a course of Augmentin since she is allergic to sulfa drugs in likely would not tolerate Flagyl and we discussed various probiotics to use. I recommend something with both bifida and lactobacillus and I think [email or web address] is a good choice without being expensive. She had been by very expensive probiotics but found this onerous to her pocket book. If this does not work then we can do a trial of Creon. Reassured o2o at 20 mg is quite safe to use daily as long term care social worker cohort studies have not borne out the relationship between this and many diseases and it may be a coincident finding simply because people who have multiple comorbidities and up on stomach medications due to polypharmacy and contributing health problems that are detrimental to the GI system. She was counseled to maintain adequate mineral intake including calcium as sometimes lowering stomach acid can interfere with the absorption. Certainly, given the amount of esophagitis seen on her 2020 EGD the benefits of avoiding esophageal cancer and improvement in her quality of life far outweigh the potential risks of osteoporosis. ROV 6 weeks. Medications: New 2 amoxicillin-pot clavulanate 875-125 mg 1 tab PO BID 20 tabs 0RF 10 days Coding Level of Care Code New Pt Level 3 (86382) Diagnoses GERD (gastroesophageal reflux disease) K21.9 Dyspepsia R10.13 Irritable bowel syndrome with diarrhea K58.0
[2025-02-03 08:55] VITALS: BP 116/64; PULSE 72; O2SAT 100; BMI 23.8
== END 2025-02-03 09:42 | disposition home or self-care (01) ==
LOC: HO.HGI 08:50
PROVIDERS: PCP Internal Medicine; Visit Provider Nurse Practitioner
DX: K21.9 Gastro-esophageal reflux disease without esophagitis (principal); R10.13 Epigastric pain; K58.0 Irritable bowel syndrome with diarrhea
CPT/HCPCS: 99203

== ENCOUNTER 2025-03-30 15:06 | Outpatient (REF) | payer OTHER, SELFPAY ==
[2025-03-30 16:36] LABS: Appearance Urine Clear; Glucose Urine UA Negative (Negative); PH 6.0 (5.0-9.0); Specific Gravity - Urine 1.020 (1.005-1.025)
[2025-03-30 17:47] LABS: Anion Gap 10 (12-20); Blood Urea Nitrogen 20 mg/dL (9-16); Calcium 9.4 mg/dL (8.4-10.2); Carbon Dioxide 29 mmol/L (22-29); Chloride 108 mmol/L (96-108); Estimated Glomerular Filt Rate > 60; Potassium 4.2 mmol/L (3.3-5.1); Sodium 143 mmol/L (135-145)
== END 2025-03-30 15:07 | disposition home or self-care (01) ==
LOC: HO.LAB 15:06
PROVIDERS: Physician Assistant; PCP Internal Medicine; Visit Provider Nurse Practitioner
DX: K58.0 Irritable bowel syndrome with diarrhea (principal); K21.9 Gastro-esophageal reflux disease without esophagitis; E87.5 Hyperkalemia; R14.0 Abdominal distension (gaseous); R30.0 Dysuria; R10.13 Epigastric pain
CPT/HCPCS: 36415; 80048; 81003

== ENCOUNTER 2025-03-30 15:06 | Outpatient (AMB) | payer OTHER, SELFPAY ==
[2025-03-30 15:12] VITALS: BP 108/66; PULSE 68; BMI 25.2
--- NOTE | 2025-03-30 15:12 | MHC.OFFVIS ---
Vital Signs 03/30/25 15:12 Height 5 ft 7 in Weight 160 lb 14.999 oz BMI 25.2 BP 108/66 Blood Pressure Location Lt brachial Position Sitting Pulse 68 Intake Visit Reasons: epi pain Intake Note: Chelo presents to in office follow up for epigastric pain. CC: Patient reports a little discomfort from epigastric region. Denies other GI symptoms today. 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 Accompanied by: Self / Same As Patient Allergies codeine (CODEINE) Allergy (Severe, Verified 03/30/25 15:23) MAKES ME CRAZY diphenhydramine (From Benadryl) Allergy (Severe, Verified 03/30/25 15:23) Palpitations,Anxiety Sulfa (Sulfonamide Antibiotics) (SULFA (SULFONAMIDE ANTIBIOTICS)) Allergy (Severe, Verified 03/30/25 15:23) UNKNWON, hives sulfamethoxazole (From Septra) Allergy (Unknown, Verified 03/30/25 15:23) Unknown trimethoprim (From Septra) Allergy (Unknown, Verified 03/30/25 15:23) Unknown HPI HPI epi pain: Details: Assessment & Plan (1) GERD (gastroesophageal reflux disease): Comment: With significant esophagitis on her 2020 EGD from [email or web address] Code(s): K21.9 - Gastro-esophageal reflux disease without esophagitis Category: Medical (2) Dyspepsia: Code(s): R10.13 - Epigastric pain Category: Medical (3) Irritable bowel syndrome with diarrhea: Code(s): K58.0 - Irritable bowel syndrome with diarrhea Category: Medical Plan Her sx started around her divorce around 2020. Her mother and son both ahd gastric problems. Her sx are generally improving. She has found o2o helpful, but I'm getting conflicting counseling about the omeprazole. She is taking 20mg o2o 2-3 times a week. Her GERD is triggered by tomatoes as well as dyppepsia. She can not otherwise pinpoint trigger foods. Prior to the o2o she had HB with nausea and discomfort and upset stomach. She was also having post prandial loose stools with urgency. Her mother had a cholecystectomy. She feels full of gas and pressure in her abd first thing in the am. It is better if she releases gas. I review her records from [email or web address] and she had fair amount of the esophagitis on her 2020 EGD with some focal gastritis, negative for H pylori, her colonoscopy was a negative study with mild diverticulosis only. There is a CAT scan from the same time. Showing no abnormality with the gallbladder or liver. We discuss how the GI system needs to move gas out through the rectum or else it does tend to backup and carry stomach acid up with it. It is likely to her bowel irritability really made her reflux much worse given the fact that she eats well in his not overweight. Since this is still a bothersome symptom we discuss the differential diagnosis that could include gallbladder disease, SIBO, food allergies, or exocrine pancreatic insufficiency. I described the treatment and testing approaches to each. Since she does not have abdominal pain to speak of I kind of doubt that her gallbladder is part of the problem but we could always do an ultrasound and HIDA scan depending on her response and if she develops symptoms going forward. She would prefer to try treating SIBO. Will give her a course of Augmentin since she is allergic to sulfa drugs in likely would not tolerate Flagyl and we discussed various probiotics to use. I recommend something with both bifida and lactobacillus and I think Anzode is a good choice without being expensive. She had been by very expensive probiotics but found this onerous to her pocket book. If this does not work then we can do a trial of Creon. Reassured o2o at 20 mg is quite safe to use daily as half-way cohort studies have not borne out the relationship between this and many diseases and it may be a coincident finding simply because people who have multiple comorbidities and up on stomach medications due to polypharmacy and contributing health problems that are detrimental to the GI system. She was counseled to maintain adequate mineral intake including calcium as sometimes lowering stomach acid can interfere with the absorption. Certainly, given the amount of esophagitis seen on her 2020 EGD the benefits of avoiding esophageal cancer and improvement in her quality of life far outweigh the potential risks of osteoporosis. ROV 6 weeks. Medications: New amoxicillin-pot clavulanate 875-125 mg 1 tab PO BID 20 tabs 0RF 10 days TODAY'S VISIT (I review her records from [facility] and she had fair amount of the esophagitis on her 2020 EGD with some focal gastritis, negative for H pylori, her colonoscopy was a negative study with mild diverticulosis only. There is a CAT scan from the same time. Showing no abnormality with the gallbladder or liver) No change with augmentin. Will progress to creon. She reports a very foul smell in her urine x a few weeks - had a UTI a few mos ago. Will get UA. ROV 6 weeks. 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 Cognitive needs: No Hearing needs: No Vision needs: Yes Review of Systems Const Denies fatigue, Denies fever(s), Denies night sweats, Denies poor appetite and Denies weight loss ENT Reports Normal hearing present, Denies dental pain, Denies dysphagia, Denies hearing loss, Denies mouth pain, Denies odynophagia, Denies throat swelling, Denies tongue swelling and Reports other (Dentition adequate) Card Reports no additional complaints Resp Reports no additional complaints GI Details: Denies abdominal pain, Denies melena, Reports bloating, Denies hematochezia, Reports constipation, Denies GI cramping, Denies dysphagia, Reports excessive flatus, Denies early satiety, Denies heartburn, Denies diarrhea, Reports loose stools, Denies nausea, Denies odynophagia, Denies vomiting and Denies hematemesis Skin/Breast Denies pruritus, Denies lesions, Denies rash and Denies jaundice Neuro Reports Normal hearing present and Denies Abnormal speech present Endo Denies fatigue Aller/Immun Denies throat swelling and Denies tongue swelling Physical Exam Vital Signs: Last Vital Signs Pulse 68 03/30/25 15:12 BP 108/66 03/30/25 15:12 BMI result Body Mass Index 25.2 Const General: cooperative, no acute distress, well developed and well groomed Nutritional Appearance: average body habitus and well nourished Orientation/consciousness: oriented to person, oriented to place and oriented to time Limitations: No language barrier HEENT Head: Yes normocephalic and Yes atraumatic Eyes General: appearance normal, both eyes and all related structures Pupils: Equal, round and reactive pupils present Neck Neck: Yes normal visual inspection and Yes no lymphadenopathy Thyroid: Thyroid normal Resp Effort & Inspection: normal respiratory effort and able to speak in complete sentences Auscultation: clear to auscultation bilaterally Cardio Rate: regular rate Rhythm: regular rhythm Heart sounds: Normal, physiologic split S2 sound present Peripheral pulses: radial pulses present and posterior tibial pulses present GI Inspection: No distended and No Abdominal panniculus present Palpation (GI): Soft to palpation, nontender, no guarding, not rigid and No hepatosplenomegaly present Percussion: Yes normal to percussion Auscultation: normal bowel sounds Rectal Exam - Female: deferred Skin General skin exam: no rashes or lesions noted, turgor normal, skin not dry, no jaundice, No spider nevi and no striae Rashes: no rashes Nails: normal Neuro General: oriented to person, oriented to place and oriented to time Cranial nerves: Yes Equal, round and reactive pupils present and Yes Normal hearing present Speech: No Abnormal speech present Extrem General: Yes normal to inspection, No clubbing, No cyanosis and No edema Psych Appearance: grossly normal and well kempt Mental Status: mental status grossly normal Speech and movement: Normal speech and movement present Affect: normal affect Attitude: cooperative Thought process: Normal thought process present and not confabulating Thought content: Normal thought content present Insight: Fair insight present (Psych) Judgement: Fair judgement present (Psych) Assessment & Plan Assessment & Plan (1) Irritable bowel syndrome with diarrhea: Code(s): K58.0 - Irritable bowel syndrome with diarrhea Category: Medical (2) Abdominal bloating: Code(s): R14.0 - Abdominal distension (gaseous) Category: Medical (3) Dysuria: Code(s): R30.0 - Dysuria Category: Medical Plan (I review her records from [facility] and she had fair amount of the esophagitis on her 2020 EGD with some focal gastritis, negative for H pylori, her colonoscopy was a negative study with mild diverticulosis only. There is a CAT scan from the same time. Showing no abnormality with the gallbladder or liver) No change with augmentin. Will progress to creon. She reports a very foul smell in her urine x a few weeks - had a UTI a few mos ago. Will get UA. ROV 6 weeks. Orders: Orders UA CC w/rflx Micro + Cult 03/30/25 R30.0 - Dysuria Medications: New [id number] 24,000-76,000 -120,000 unit (Creon) 2 caps PO BID 120 caps 6RF 30 days K58.9 - Irritable bowel syndrome, unspecified Coding Level of Care Code Est Pt Level 3 (10716) Diagnoses Irritable bowel syndrome with diarrhea K58.0 Abdominal bloating R14.0 Dysuria R30.0
--- OUTSIDE RECORDS SUMMARY | 2025-03-30 15:38 | XMS_ITS | Encounter Summary ---
Author Organization [facility] Address [address] [place] [address] Phone Care Team Providers Care Body Art Technician Name Role Phone Mayra Prather ACETYLENE TORCH SOLDERER Primary Care Provider Mayra Prather ACETYLENE TORCH SOLDERER Primary Care Provider Brittany Soler MD Primary Care Provider + [phone] Encounter Details Date Type Department Care Team (Late st Contact Info) Description 06/29/2021 Procedure Pass [facility] Endoscopy Admitting Dept Virtual Department [address] [place] [address] Social History Tobacco Use Types Packs/Day Years Used Date Smoking Tobacco: Never Smokeless Tobacco: Never Alcohol Use Standard Drinks/Week Comments Yes 0 (1 standard drink = 0.6 oz pur e alcohol) per month Comments Unknown Sex and Gender Information Value Date Recorded Sex Assigned at Not on file Legal Sex Female 11:53 AM EDT Gender Identity Not on file Sexual Orientation Not on file documented as of this encounter Plan of Treatment Upcoming Encounters Date Type Department Care Team (Late st Contact Info) Description 08/29/2025 1:20 PM EST Office Visit [facility] [address] Floor, [address] [place] [id number] Rodrigo Del Rosario MD, [place] [address] [facility], [address] [address] documented as of this encounter Visit Diagnoses Not on filedocumented in this encounter Care Teams Body Art Technician Relationship Specialty Start Date End Date Mayra Prather NP PCP - General Family Medicine 06/20/21 11/26/23 Mayra Prather NP [address] [facility] [address] [place] [address] PCP - General Nurse Practitioner 11/27/23 03/09/24 Brittany Soler MD [address] [facility] [address] [place] [address] PCP - General Internal Medicine 03/10/24 documented as of this encounter Additional Source Comments The information contained in this document represents components of the legal health record. It is not the complete legal health record.[facility]
== END 2025-03-30 15:46 | disposition home or self-care (01) ==
LOC: HO.HGI 15:07
PROVIDERS: PCP Internal Medicine; Visit Provider Nurse Practitioner
DX: K58.0 Irritable bowel syndrome with diarrhea (principal); R14.0 Abdominal distension (gaseous); R30.0 Dysuria
CPT/HCPCS: 99213